=== PATIENT | male | born 1940 | race Caucasian/White ===

== ENCOUNTER 2016-05-03 16:46 | Inpatient (IN) | payer OTHER ==
[2016-05-03] MEDS ORDERED: NS 1,000 ML IV ONE (18:15)
[2016-05-03 18:24] LABS: % IMMATURE GRANULYOCYTES 0.7 % (0.0-1.1); ABSOLUTE IMMATURE GRANULOCYTES 0.12 10^3/uL (0.00-0.10); ADD DIFF? NO; ADD MORPH? NO; ADD SCAN? NO; ATYPICAL LYMPHOCYTE FLAG 0 (0-99); FRAGMENT RBC FLAG 0 (0-99); HEMATOCRIT 33.8 % (40.0-51.0); HEMOGLOBIN 10.8 g/dL (13.7-17.5); LEFT SHIFT FLG 0 (0-99); LIPEMIA HEMOLYSIS FLAG 80 (0-99); MEAN CELL HEMOGLOBIN 30.9 pg (27.9-34.1); MEAN CELL VOLUME 96.6 fL (81.5-99.8); MEAN PLATELET VOLUME 9.7 fL (8.7-11.7); PLATELET CLUMPS FLAG 10 (0-99); PLATELET COUNT 270 10^3/uL (150-400)
[2016-05-03 18:41] LABS: ANION GAP 12 mEq/L (8-16); CALCIUM 10.1 mg/dL (8.5-10.4); CARBON DIOXIDE 32 mEq/l (22-31); CHLORIDE 99 mEq/L (97-110); GLOMERULAR FILTRATION RATE > 60; GLUCOSE 106 mg/dL (70-100); POTASSIUM 3.5 mEq/L (3.5-5.2); SODIUM 143 mEq/L (134-144)
[2016-05-03] MEDS ORDERED: ONDANSETRON 4 MG/2 ML VIAL IVP PRN (19:01)
[2016-05-03] MEDS ORDERED: POLYETHYLENE GLYCOL 3350 17 GM PKT PO PRN (19:01)
[2016-05-03] MEDS ORDERED: oxyCODONE IR 5 MG TAB PO PRN (19:01)
[2016-05-03] MEDS ORDERED: BISACODYL 10 MG SUPP PR PRN (19:01)
[2016-05-03] MEDS ORDERED: ONDANSETRON DISINTEGRATING 4 MG TAB PO PRN (19:01)
[2016-05-03] MEDS ORDERED: MAGNESIUM HYDROXIDE 30 ML UDCUP PO PRN (19:01)
[2016-05-03] MEDS ORDERED: ACETAMINOPHEN 325 MG TAB PO PRN (19:01)
[2016-05-03] MEDS ORDERED: diphenhydrAMINE 25 MG CAP PO PRN (19:01)
[2016-05-03] MEDS ORDERED: LACTULOSE 20 GM/30 ML UDCUP PO PRN (19:01)
[2016-05-03] MEDS ORDERED: IOPAMIDOL (ISOVUE-300) 100 ML BTL IV ONE (19:03)
[2016-05-03] MEDS ORDERED: D5W 1/2 NS W/ 20 KCl/L 1,000 ML IV SCH (19:15)
--- NOTE | 2016-05-03 19:22 | EDPHY ---
H & P Time Seen by Provider: 05/03/16 17:53 HPI/ROS: CHIEF COMPLAINT: Facial numbness, dehydration, anorexia, dysarthria HISTORY OF PRESENT ILLNESS: 75-year-old male presents to the emergency department by private vehicle with his caregiver complaining of feeling very dehydrated. The patient states that over the last 2 weeks he has noticed some numbness to the left side of his lips and difficulty opening his mouth an articulating. 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 His caregiver saw him yesterday at 5:00 p.m. and states that he was articulating a bit better yesterday. He does not know if this is related to the dehydration. The caregiver was questioning possible stroke. The patient denies a headache. No known fevers or chills. No chest pain or difficulty breathing. Patient has lost a significant amount of weight. He is unable to eat because he is unable to control the motor with the right side of his face. His last bowel movement was approximately 1 week ago. He still states that he typically has a bowel movement daily. He is unsure of the last time he urinated. He denies abdominal pain. Denies back pain. Denies any reported trauma. He saw his ENT yesterday. REVIEW OF SYSTEMS: Constitutional: No fever, no chills. Eyes: No double or blurry vision. ENT: As above. No sore throat. Respiratory: No cough, no shortness of breath. Cardiac: No chest pain. Gastrointestinal: No abdominal pain, vomiting or diarrhea. Genitourinary: No dysuria. Musculoskeletal: No neck or back pain. Skin: No rashes. Neurological: No headache. Past Medical/Surgical History: Squamous cell carcinoma with facial reconstruction Social History: Smoking Status: Never smoked Physical Exam: General Appearance: Alert, no distress. Caregiver at bedside. Eyes: Pupils equal and round. Extraocular motions are all intact. ENT: Mouth: Mucous membranes very dry. Patient has some dysarthria. Respiratory: No wheezing, rhonchi, or rales, lungs are clear to auscultation. Cardiovascular: Regular rate and rhythm. Gastrointestinal: Abdomen is soft and nontender, no masses, no rebound or guarding, bowel sounds normal. Neurological: Alert and oriented x 3, cranial nerves II through XII grossly intact Skin: Purulent drainage noted pre-auricular to the right ear adjacent to surgical incision. Swelling noted to the right side of the face which is nontender to palpate although the patient has no sensation to the right side of the face. Pushing on the pre-auricular area of the face on the right side causes more purulent drainage. This was cultured. There is no redness or warmth. Warm and dry, no rashes. Musculoskeletal: Nontender to palpate along the cervical, thoracic or lumbar spine. Neck is supple. Extremities: Full range of motion and no peripheral edema. Psychiatric: Patient is oriented X 3, there is no agitation. Constitutional: Initial Vital Signs Temperature (C) 36.5 C 05/03/16 16:50 Heart Rate 88 05/03/16 16:50 Respiratory Rate 18 05/03/16 16:50 Blood Pressure 90/66 L 05/03/16 16:50 O2 Sat (%) 92 05/03/16 16:50 O2 Delivery Mode Room Air Allergies/Adverse Reactions: ampicillin Allergy (Unknown, Verified 05/03/16 16:58) Home Medications: Medication Instructions Recorded Butrans 15mcg/Hr Patch 1 patch TD Q7D 12/21/15 Fludrocortisone Acetate [Florinef] 0.2 mg PO DAILY 12/21/15 LORazepam [Ativan (*)] 0.5 - 1 mg PO HS 12/21/15 Levothyroxine [Synthroid 100 mcg 100 mcg PO HS 12/21/15 (*)] Pregabalin [Lyrica 75mg (*)] 150 mg PO DAILY 12/21/15 Sodium Chloride 4mg Tab 4 mg PO DAILY 12/21/15 Testosterone [ANDROGEL 1% 5gm pkt 5 gm TD DAILY 12/21/15 (*)] Pantoprazole Sodium [Protonix 40mg 40 mg PO BID #60 tab 12/23/15 (*)] Ciprofloxacin [Cipro] 500 mg PO BID 05/03/16 Citalopram Hydrobromide 20 mg PO DAILY 05/03/16 [Citalopram HBr] Pregabalin [Lyrica 75mg (*)] 225 mg PO HS 05/03/16 Medical Decision Making - Diagnostics Imaging: CT face with IV contrast: 1. Extensive lytic changes in the right face and skull base, as above, which could be related to osteomyelitis, metastasis, or possibly radiation necrosis. 2. Possible small abscess at the medial aspect of the right mandible, contiguous with extensive soft tissue swelling and inflammation in the region and possibly contiguous with the sinus tract extending to the patient's preauricular region. 3. Limited assessment of the right temporal lobe of the brain in the region of extensive erosions due to artifact from the patient's right eyelid prosthesis. 4. Comparison with the patient's previous imaging is recommended to assess acute changes suggestive of osteomyelitis from chronic changes. This was reported to me by Dr. Venkata Smith. CT brain without contrast: 1. Slightly limited study due to artifact from the right eyelid prosthesis, with extensive lytic changes in the right facial bones and skull base, which could be related to osteomyelitis, metastases, or radiation necrosis. 2. Limited assessment of the right temporal lobe in the area of interest due to artifact. This was reported to me by Dr. Venkata Smith. ED Course/Re-evaluation: The case was discussed with Dr. Felicity Pool, secondary supervising physician , who did not directly evaluate the patient but agrees with treatment and plan. The patient complains of numbness and tingling to the left side of his face and difficulty with moving the right side of his lips. This is been going on for the last 2 weeks. The caregiver however thinks that this has been worse in the last 24 hours when he last saw the patient. The patient's mucous membranes are extremely dry. The caregiver tells me that the patient was very tired and lethargic yesterday. The patient has difficulty articulating words which could be from his dry mucous membranes in combination with his facial surgery however this could be related to CVA. CT scan of the brain has been ordered as well as CT imaging of face with IV contrast to rule out abscess has been ordered and is pending. Elevated white blood cell count of almost 18,000. His BUN is high likely related to dehydration. I discussed case with Joce Chauhan, physician speech pathologist assistant, who admit this patient to medical-surgical floor. Blood cultures have been ordered and are pending. The patient is currently afebrile in the emergency department. Wound cultures pending. Joce Chauhan evaluated the patient and also spoke with Infectious Disease. See his dictation. Differential Diagnosis: Including but not limited to wound infection, sepsis, dehydration, failure to thrive, carcinoma, CVA - Data Points Laboratory Results: Laboratory Results 05/03/16 18:10 05/03/16 18:10 05/03/16 18:10 WBC 17.39 H 10^3/uL (3.80-9.50) RBC 3.50 L 10^6/uL (4.40-6.38) Hgb 10.8 L g/dL (13.7-17.5) Hct 33.8 L % (40.0-51.0) MCV 96.6 fL (81.5-99.8) MCH 30.9 pg (27.9-34.1) MCHC 32.0 L g/dL (32.4-36.7) RDW 17.0 H % (11.5-15.2) Plt Count 270 10^3/uL (150-400) MPV 9.7 fL (8.7-11.7) Neut % (Auto) 91.1 H % (39.3-74.2) Lymph % (Auto) 1.6 L % (15.0-45.0) Weber % (Auto) 6.3 % (4.5-13.0) Eos % (Auto) 0.1 L % (0.6-7.6) Baso % (Auto) 0.2 L % (0.3-1.7) Nucleat RBC Rel Count 0.0 % (0.0-0.2) Absolute Neuts (auto) 15.85 H 10^3/uL (1.70-6.50) Absolute Lymphs (auto) 0.27 L 10^3/uL (1.00-3.00) Absolute Monos (auto) 1.09 H 10^3/uL (0.30-0.80) Absolute Eos (auto) 0.02 L 10^3/uL (0.03-0.40) Absolute Basos (auto) 0.04 10^3/uL (0.02-0.10) Absolute Nucleated RBC 0.00 10^3/uL (0-0.01) Immature Gran % 0.7 % (0.0-1.1) Immature Gran # 0.12 H 10^3/uL (0.00-0.10) Sodium 143 mEq/L (134-144) Potassium 3.5 mEq/L (3.5-5.2) Chloride 99 mEq/L (97-110) Carbon Dioxide 32 H mEq/l (22-31) Anion Gap 12 mEq/L (8-16) BUN 39 H mg/dL (7-23) Creatinine 1.0 mg/dL (0.7-1.3) Estimated GFR > 60 Glucose 106 H mg/dL (70-100) Calcium 10.1 mg/dL (8.5-10.4) Microbiology Results: MICROBIOLOGY 05/03/16 18:10 Face - Swab Gram Stain - Final Medications Given: Discontinued Medications Sodium Chloride (Ns) 1,000 mls @ 0 mls/hr IV ONCE ONE PRN Reason: Wide Open Stop: 05/03/16 18:16 Last Admin: 05/03/16 18:15 Dose: 1,000 mls Departure - Departure Disposition: [facility] Inpatient Acute Clinical Impression: Wound infection right side of face, Dehydration Condition: Good
[2016-05-03] MEDS ORDERED: VANCOMYCIN 1 GM/NS 250 ML BAG IV ONE (19:32)
--- NOTE | 2016-05-03 19:58 | CT ---
CT Head Without Contrast History: Left facial numbness, dysarthria, right-sided ear pain with purulent discharge. Comparison: CT facial same day. Technique: Axial unenhanced images were obtained from the vertex through the skull base. Dose reduct ion techniques were utilized. Findings: Mccarty-white differentiation is preserved. There is mild diffuse cerebral atrophy with scatte red periventricular and subcortical low attenuation, suggesting chronic microvascular ischemic gliosi s. No intracranial hemorrhage is identified. No extraaxial fluid collections are identified. There is no mass, mass effect or evidence of infarct. Atherosclerotic calcification is present in the dista l internal carotid arteries. Visualization of the right orbit and portions of the brain are limited b y artifact from right orbital hardware. There are extensive osseous erosions in the right mastoid air cells, with extensive fluid opacification of the mastoid air cells (approximately 70%) and partial f luid opacification of the middle ear. The ossicles appear intact. There is erosion or postsurgical ch marc in the lateral wall of the right mastoid (series 3, image 24), with erosion of portions of the g reater wing of the sphenoid and sphenoid body as well as the squamous portion of the temporal bone. E rosions are also noted in the petrous portion of the temporal bone with erosion of the lateral wall o f the carotid canal. There is dehiscence of the sphenoid body between the sphenoid sinus and middle c ranial fossa. A small air fluid level is present in the sphenoid sinus. Punctate air is at the medial aspect of the left middle cranial fossa adjacent to the sphenoid sinus (series 4, image 45) of uncer tain clinical significance. There is also apparent dehiscence of the posterior wall of the right maxi llary sinus (series 3, image 26). Assessment of the right temporal lobe in the region of interest is limited by artifact. There is soft tissue air in the regions of the zygomatic process and squamous po rtion of the temporal bone, as well as the right temporal mandibular joint with air extending to the skin in the preauricular region. Partial erosion of the right mandibular condyle is noted. Impression: 1. Slightly limited study due to artifact from the right eyelid prosthesis, with extensive lytic mendoza ges in the right facial bones and skull base, which could be related to osteomyelitis, metastases, or radiation necrosis. 2. Limited assessment of the right temporal lobe in the area of interest due to artifact. 3. Additional findings as above. Findings discussed with Chasity Campos PA-C, on May 03, 2016 1949 hours.
--- NOTE | 2016-05-03 19:59 | SOAPPROG ---
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 Unknown if disease is truly contained weight loss--significant difficulty due to tongue impairment and swallowing--- will make NPO tonight, speech assessment in the am dehydration--IVF's constipation--LOC RA--continue meds Subjective: The patient has been having increased difficulty with eating/chewing/ and swallowing. He say his [place] [facility] today who put him on cipro and some ear drops for a draining infection along the anterior edge of his right ear at the posterior margin of his skin graft. He admits to coughing while eating. Some lung congestion. He feels increasingly weak and dehydrated. No F/C. Troubles with BM's sound to date back perhaps 2 weeks. UOP has been limited. No unusual pain Objective: Vital Signs Temp Pulse Resp BP Pulse Ox 36.5 C 76 20 120/71 94 05/03/16 16:50 05/03/16 18:35 05/03/16 18:35 05/03/16 18:35 05/03/16 18:35 Gen: thin, weak, pale, somewhat muddled HEENT: post surgical changes / post radiation changes Right face with droop, tongue movement problems, eye tracking issues--right eye, draining from posterior margin of skin graft that seems to "bubble" as he talks. No obvious LN enlargement, but terrain has been extensively modified. Pursing lips does not clearly suggest a perforation from mouth to graft is present Lungs: congested cough Lt upper lung field o/w clear Heart: RRR Chest is very thin ABd + bs soft, mild TTP lower abdomen, no masses Skin warm, dry LE's no edema Skeletal muscle has atrophied extensively CT head no acute intracranial injury Post surgical post radiative changes Right face/cheek/ear region CXR--generally clear ICD10 Worksheet Patient Problems: Problems Problem Status Diagnosed Anemia Acute Primary parotid gland malignancy Acute Upper GI bleed Acute
--- NOTE | 2016-05-03 20:28 | CT ---
CT Facial Bones, With Contrast History: Squamous cell carcinoma of the right face, with extensive postsurgical change, right preaur icular pain, and purulent discharge. Technique: Axial images were obtained through the face following the uneventful intravenous administ ration of 75 mL Isovue-300 and multiplanar reformations were performed. Dose reduction techniques we re utilized. Comparison: CT head the same day. Findings: There is an ill-defined 1.5 x 0.8 cm low attenuation collection at the medial aspect of th e mandible (series #3, image #92), which could be related to early abscess. There is extensive infla mmation in the adjacent soft tissues and musculature. There is soft tissue air in the region, as wel l, principally centered around the right temporomandibular joint, with a tract of air extending to th e preauricular region, likely corresponding to the area of purulent discharge. There are extensive o sseous defects, which could be related to erosions from osteomyelitis or potentially diffuse lytic me tastases, involving the right temporal bone, greater ring of the sphenoid, right mastoid air cells, p osterior wall of the right maxillary sinus, as well as the petrous portion of the temporal bone, incl uding the lateral wall of the carotid canal. There are cortical defects in the right mandibular cond yle, suggesting erosive change, with scattered air in the right temporomandibular joint. There is a large defect in the lateral aspect of the right mastoid air cells, which may be postsurgical, with ex tensive fluid opacification of the right mastoid air cells (approximately 70%). There is partial flu id opacification of the middle ear. The ossicles are intact. Assessment of the brain in the region is limited by artifact from an eyelid prosthesis in the right eye. There is dehiscence of bone betwe en the sphenoid sinus and right middle cranial fossa. A small air-fluid level is present in the righ t sphenoid. Punctate air is noted at the medial aspect of the left temporal lobe, lateral to the sph enoid body, with no visible osseous defects. This could be related to artifact from venous gas but i s nonspecific. There is postsurgical change in the right neck extending from the right submandibular region through the visualized right neck, with numerous surgical clips and scattered scarring. The right internal carotid artery is diminutive but appears patent throughout its visualized length. The right parotid gland is not visible. The left parotid gland is normal. The right submandibular glan d appears atrophic. The left submandibular gland is normal. No pathologically enlarged lymph nodes are identified. Impressions 1. Extensive lytic changes in the right face and skull base, as above, which could be related to ost eomyelitis, metastasis, or possibly radiation necrosis. 2. Possible small abscess at the medial aspect of the right mandible, contiguous with extensive soft tissue swelling and inflammation in the region and possibly contiguous with the sinus tract extendin g to the patient's preauricular region. 3. Limited assessment of the right temporal lobe of the brain in the region of extensive erosions du e to artifact from the patient's right eyelid prosthesis. 4. Comparison with the patient's previous imaging is recommended to assess acute changes suggestive of osteomyelitis from chronic changes. Findings discussed with Chasity Campos PA-C, on May 03, 2016 1949 hours. E:jack
[2016-05-03 21:00] LABS: COLOR YELLOW; LEUKOCYTE ESTERASE,URINE NEGATIVE (NEGATIVE); NITRITE,URINE NEGATIVE (NEGATIVE)
[2016-05-03] MEDS ORDERED: ENOXAPARIN 60 MG/0.6 ML SYR SC SCH (21:00)
--- NOTE | 2016-05-03 21:14 | GHP ---
[f rep st] HISTORY AND PHYSICAL DATE OF ADMISSION: 05/03/2016 REASON FOR ADMISSION: Facial infection, difficulty swallowing, weakness, anemia, elevated white bloo d count. HISTORY OF PRESENT ILLNESS: The patient has a complicated past medical history with known metastatic squamous cell carcinoma involving the right cheek, right face, and right preauricular region. He pickard d initial skin biopsies which did not quite capture the squamous cell carcinoma. This unfortunately metastasized to near structures. He has had multiple surgeries including 3 skin grafts. He has had partial excision of portions of his right ear. He has had radiation therapy. He has had difficulty chewing, swallowing and speaking secondary to complications with facial nerves as a consequence of th e aforementioned procedures and treatments. He has had more swallowing. As for the past several day s, he admits to choking and coughing when he eats. He feels quite dehydrated. He has had troubles w ith constipation. He states he was seen by his ENT, name unknown, in [place], either today or yesterd ay and was given ear drops for his right ear as well as Cipro for the infection. He has had some michael ining on the posterior margin of the right facial skin graft. He denies fever or chills. He admits to weakness. He has not had any other rash. He was brought here by his caregiver who provides some supplemental details as the patient is somewhat tired and a bit muddled at this point. 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 MEDICATIONS: Mirtazapine 30 mg nightly, lorazepam 0.5 mg nightly, omeprazole or pantoprazole 20-40 m g b.i.d., Synthroid 100 mcg daily, testosterone replacement daily, fludrocortisone 0.1 mg 2 tablets d aily, dutasteride 0.5 mg daily, Lyrica 3 capsules twice a day, oxycodone 5 mg 1-2 q.6 hours p.r.n. br eakthrough pain, duloxetine 60 mg daily with dinner, Butrans patch 20 mcg daily. SURGICAL HISTORY: Multiple procedures involving excision of right facial squamous cell carcinoma wit h recurrent skin graft surgery. Dr. Simms has been his most recent surgeon in [place]. SOCIAL HISTORY: He is a nonsmoker. Does not consume alcohol. He is , but in a challenging r elationship. FAMILY HISTORY: Father of [place] at 70. Mother at 80, had complications of Alzheimer's. He h as a brother with rheumatoid arthritis and history of stroke. ALLERGIES: Admits to remote allergy to ampicillin or amoxicillin perhaps 50 years ago with unknown r eaction. REVIEW OF SYSTEMS: He admits to feeling tired, weak. No specific fever or chills. See HPI. PHYSICAL EXAMINATION: VITAL SIGNS: Blood pressure initially 98/66 with fluid. This has improved to 124/72. Heart rate 76 to 90 beats per minute, respiratory rate 16 to 20, saturations 97%, 3 L. Ini tial saturations 92%, room air, temperature 36.5. GENERAL: Somewhat cachectic, pleasant, older-appe aring male, postsurgical changes right face, right eye. He generally has closed with a gold weight i n the lid to help approximate his lid margin. Tracking is asymmetric. He has a skin graft with fluc tuance in the superior portion of the skin graft with drainage in the posterior margin along the prea uricular region. There are some postsurgical changes to his right ear. Ear canal is somewhat inject ed. Purulent material is somewhat yellow-brownish in color. No obvious odor. Speech is difficult. Approximation is asymmetric. He describes some numbness around his mouth. NECK: Without obvious l ymphadenopathy. LUNGS: Somewhat coarse breath sounds. Slightly productive cough, particularly left upper field. HEART: Regular rate and rhythm. Mild systolic murmur is noted. ABDOMEN: Positive b owel sounds. Somewhat scaphoid, soft, diffusely mildly tender. No guarding, rebound, or masses. SK IN: Warm, dry, intact. JOINTS: Without impressive synovitis. LOWER EXTREMITIES: Without edema. NEUROVASCULARLY: Intact except for deficits involving his face. CT head: Postsurgical changes right face. CT brain: No acute injury. Chest x-ray: No acute infiltrate. LAB WORK: White count 17.3, hemoglobin 10.8, platelet count 270. Neutrophils with the majority of h is white count elevation. Metabolic panel: Potassium 3.5, carbon dioxide 32, BUN 39, glucose 106, c reatinine 1.0. ASSESSMENT: 1. Dehydration, poor nutrition, weight loss, likely complicated due to difficulty with swallowing, c hewing, and tongue coordination. Will make him n.p.o. Tonight. Will obtain Speech consultation. 2. Clear evidence of infection and concern for abscess formation with drainage in the superior porti on of his right facial skin graft. No air seen by gross inspection on CT of face in this region. I consulted with Dr. Pearl from [place] (Infectious Disease). We will start on meropenem 1 g q.8 and vanco mycin 750 mg q.12 for initial coverage of potential aspiration pneumonia, Pseudomonas and Staph. Arian l continue with IV fluid replacement. Will support potassium given the low end of the normal range. 3. Complicated situation with prior surgery. Better evaluation for whether or not he is truly in re mission from his multiple surgeries is yet to be determined. He will be having an MRI of head and ne ck at some point in the future down at [facility], if surgery is needed to be considered, potent suziey transferring him down to [place] where Dr. Simms is within reach. 4. Depression, anxiety, insomnia. Continue with current psychotropics. 5. Large duodenal ulcer with profound anemia in the not too distant past. Continue on proton pump i nhibitor therapy b.i.d. 6. Prior clotting history. His current medication list in our office does not reflect that he is on an anticoagulant. Will place on Lovenox for temporary coverage. Follow closely given recent GI (ga strointestinal) bleed. /[id number]/MODL
[2016-05-03] MEDS ORDERED: BUTRANS 15 MCG/HR TD SCH (21:15)
[2016-05-03] MEDS ORDERED: D5W NS W/ 20 KCl/L 1,000 ML IV SCH (21:15)
--- NOTE | 2016-05-03 21:16 | DX ---
AP and Lateral Chest May 03, 2016 History: Cough, elevated white count, history of right facial cancer and purulent right facial disch arge. Comparison: CT angiogram chest April 30, 2013. Findings: There are nodular opacities overlying the left lung base on the PA view, possibly related to posterior consolidation on the lateral. There is no pneumothorax. Mild interstitial prominence i s noted. The heart size is normal. Surgical clips overlie the right neck. There is asymmetric soft tissue swelling in the right neck. Degenerative change is present in the spine, with no aggressive osseous lesions. Impression: Patchy nodular left basilar opacities, which could be related to aspiration/pneumonia, o r possibly pulmonary nodules. Radiographic follow up is recommended to resolution. Findings and recommendations discussed with Melinda, the patient's nurse, on May 03, 2016 at 21 06 hours.
[2016-05-03] MEDS: VANCOMYCIN 750 MG in D5W 150 ML IV SCH (23:03)
[2016-05-03] MEDS: MEROPENEM 1 GM in NS 100 ML IV SCH (23:05)
[2016-05-03] MEDS: BUTRANS 20 MCG/HR TD SCH (23:07)
[2016-05-03] MEDS: SENNOSIDES/DOCUSATE SODIUM TAB PO SCH (23:08)
[2016-05-03] MEDS: PANTOPRAZOLE SODIUM 40 MG TAB PO SCH (23:08)
[2016-05-04 05:23] LABS: % IMMATURE GRANULYOCYTES 0.7 % (0.0-1.1); ABSOLUTE IMMATURE GRANULOCYTES 0.09 10^3/uL (0.00-0.10); ADD DIFF? NO; ADD MORPH? NO; ADD SCAN? NO; ATYPICAL LYMPHOCYTE FLAG 10 (0-99); FRAGMENT RBC FLAG 0 (0-99); HEMOGLOBIN 9.4 g/dL (13.7-17.5); LEFT SHIFT FLG 20 (0-99); LIPEMIA HEMOLYSIS FLAG 80 (0-99); MEAN CELL HEMOGLOBIN 30.1 pg (27.9-34.1); MEAN CELL HEMOGLOBIN CONCENTR. 30.3 g/dL (32.4-36.7); MEAN CELL VOLUME 99.4 fL (81.5-99.8); MEAN PLATELET VOLUME 9.8 fL (8.7-11.7); PLATELET CLUMPS FLAG 0 (0-99); PLATELET COUNT 213 10^3/uL (150-400); RED BLOOD CELL COUNT 3.12 10^6/uL (4.40-6.38)
[2016-05-04 05:38] LABS: ANION GAP 8 mEq/L (8-16); CALCIUM 9.2 mg/dL (8.5-10.4); CARBON DIOXIDE 34 mEq/l (22-31); CHLORIDE 104 mEq/L (97-110); CREATININE 0.7 mg/dL (0.7-1.3); GLOMERULAR FILTRATION RATE > 60; GLUCOSE 122 mg/dL (70-100); POTASSIUM 3.7 mEq/L (3.5-5.2); SODIUM 146 mEq/L (134-144)
[2016-05-04] MEDS: MEROPENEM 1 GM in NS 100 ML IV SCH ×3 (05:51→22:16)
[2016-05-04] MEDS: VANCOMYCIN 750 MG in D5W 150 ML IV SCH ×2 (06:37→20:15)
[2016-05-04] MEDS: TESTOSTERONE 1% 5 GM GEL PKT TD SCH (09:00)
--- NOTE | 2016-05-04 09:05 | SOAPPROG ---
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 Unknown if disease is truly contained weight loss--significant difficulty due to tongue impairment and swallowing--- will make NPO tonight, speech assessment in the am dehydration--IVF's constipation--LOC RA--continue meds 05/04/16 09:05 Right sided facial infection, complicated history with multiple surgeries, skin grafts x3, and radiation--Lots of drainage over night. WBC slightly better Speech, chewing, swallowing, and drinking deficits--ST working with patient now Neurogenic pain--significantly increased after not being able to take/swallow Lyrica, IV morphine added this am with some improvement dehydration--improved--change fluids given elevated sodium level constipation--+ BM today RA--stable anemia with iron deficiency, will replace with IV iron given feeding difficulties Subjective: The patient reports a difficult night due to headache and head pain. Numbness about his mouth is stable. He is hungry. He denies cough. Urinary flow has improved with IVF's, + BM as well. Objective: Vital Signs Temp Pulse Resp BP Pulse Ox 36.9 C 56 L 18 148/69 H 98 05/04/16 08:00 05/04/16 08:00 05/04/16 08:00 05/04/16 08:00 05/04/16 08:00 Laboratory Results 05/04/16 05:09 05/04/16 05:09 05/03/16 05/04/16 05/05/16 05:59 05:59 05:59 Intake Total 1000 Balance 1000 Gen: pleasant, uncomfortable, friendly HEENT: significant drainage overnight is caking right ear area, prominence of fluctuance about superior portion of skin graft has diminished some Speech is quite impaired, but better this am Lungs: improved aeration and clarity Heart: RRR Abd + bs, soft, mild lower abdominal TTP yesterday has resolved Hgb has dropped further with IVF's WBC improved ICD10 Worksheet Patient Problems: Problems Problem Status Diagnosed Dehydration Acute Anemia Acute Primary parotid gland malignancy Acute Upper GI bleed Acute
[2016-05-04] MEDS: DULoxetine 60 MG CAP PO SCH (10:21)
[2016-05-04] MEDS: PREGABALIN 75 MG CAP PO SCH (10:22)
[2016-05-04] MEDS: SENNOSIDES/DOCUSATE SODIUM TAB PO SCH ×2 (10:22→21:45)
[2016-05-04] MEDS: FLUDROCORTISONE ACETATE 0.1 MG TAB PO SCH (10:22)
[2016-05-04] MEDS: PANTOPRAZOLE SODIUM 40 MG TAB PO SCH ×2 (10:36→21:45)
[2016-05-04] MEDS: D5W 1/2 NS W/ 20 KCl/L 1,000 ML IV SCH (12:52)
[2016-05-04] MEDS: SODIUM FERRIC GLUCONAT/SUCROSE 125 MG in NS 100 ML IV SCH (12:55)
--- NOTE | 2016-05-04 13:22 | DX ---
Videofluoroscopy Speech Study Clinical Indication: Evaluate for aspiration in a patient with a history of squamous cell carcinoma o f the right face and extensive postsurgical changes. Findings: There is aspiration and penetration with thin liquids. With nectar-thickened liquid the pat ient was unable to adequately swallow a bolus. There is lack of tilting of the vallecula and weakness of the oropharynx. The patient was unable to drink from a straw with thin liquids, and all boluses w ere fed to him with a spoon. Dose: 13 mGy. Impression: Aspiration and penetration with thin liquids. Difficulty with nectar-thickened liquids. T he patient did not frankly aspirate the nectar thin liquids but was unable to adequately swallow a jessenia lacy. Please see separate report for full recommendations from speech therapy.
--- NOTE | 2016-05-04 13:57 | SOAPPROG ---
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 Unknown if disease is truly contained weight loss--significant difficulty due to tongue impairment and swallowing--- will make NPO tonight, speech assessment in the am dehydration--IVF's constipation--LOC RA--continue meds 05/04/16 09:05 Right sided facial infection, complicated history with multiple surgeries, skin grafts x3, and radiation--Lots of drainage over night. WBC slightly better Speech, chewing, swallowing, and drinking deficits--ST working with patient now Neurogenic pain--significantly increased after not being able to take/swallow Lyrica, IV morphine added this am with some improvement dehydration--improved--change fluids given elevated sodium level constipation--+ BM today RA--stable anemia with iron deficiency, will replace with IV iron given feeding difficulties 05/04/16 13:[address] olivera. Patient aspirates thin and nectar thick liquids and can't form a bolus. D/w patient, he would like to proceed with a PEG tube. I have discussed this with Dr Fuller who will see the patient today for hopeful placement today. Will hold on oral meds and hopefully be able to use the PEG for meds in the near future Objective: Vital Signs Temp Pulse Resp BP Pulse Ox 36.5 C 59 L 16 172/92 H 90 L 05/04/16 12:02 05/04/16 12:02 05/04/16 12:02 05/04/16 12:02 05/04/16 12:02 Laboratory Results 05/04/16 05:09 05/04/16 05:09 05/03/16 05/04/16 05/05/16 05:59 05:59 05:59 Intake Total 1000 Balance 1000 ICD10 Worksheet Patient Problems: Problems Problem Status Diagnosed Dehydration Acute Anemia Acute Primary parotid gland malignancy Acute Upper GI bleed Acute
[2016-05-04] MEDS ORDERED: METOPROLOL TARTRATE 5 MG/5 ML INJ IVP ONE (15:30)
[2016-05-04] MEDS ORDERED: PROPOFOL/EMULSION 500 MG/50 ML BOTTLE IV ONE (16:54)
[2016-05-04] MEDS ORDERED: ROCURONIUM 50 MG/5 ML VIAL ONE (16:56)
--- NOTE | 2016-05-04 17:41 | GCON ---
[f rep st] CONSULTATION DATE OF CONSULTATION: 05/04/2016 CONSULTING PHYSICIAN: CLIFF Wesley REASON FOR CONSULTATION: Dysphagia. CHIEF COMPLAINT: Dysphagia. HISTORY OF PRESENT ILLNESS: Mr. Rawls is a 75-year-old male with a past medical history of metastatic squamous cell carcinoma involving the right side of his face who presents to [facility] with complaints of dysphagia as well as significant weakness. 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 Over the last several days, he has been having episodes of choking and coughing when he eats. He has not been able to drink water and states that he feels dehydrated. He denies any exacerbating or alleviating factors to his symptoms. He had a recent swallow evaluation, and he was noted to have aspiration and penetration of thin liquids. He is expected to have a prolonged recovery. I am asked by Joce Chauhan to evaluate this patient in consultation regarding his dysphagia. PAST MEDICAL HISTORY: 1. Squamous cell carcinoma with metastasis with multiple surgeries and radiation therapy. 2. Hypertension. 3. Hypogonadism. 4. Hypothyroidism. 5. Rheumatoid arthritis. 6. Thyroid goiter. 7. Benign prostatic hypertrophy. 8. Pulmonary embolus. 9. Hyperlipidemia. PAST SURGICAL HISTORY: Excision of right facial squamous cell carcinoma with recurrent skin graft surgeries. MEDICATIONS: Mirtazapine, lorazepam, omeprazole, Synthroid, testosterone, fludrocortisone, Lyrica, oxycodone, and duloxetine. SOCIAL HISTORY: Nonsmoker. Does not consume alcohol. FAMILY HISTORY: Father of [place] at 70, mother at 80 of Alzheimer disease, brother with rheumatoid arthritis and CVA. ALLERGIES: Penicillin. REVIEW OF SYSTEMS: A 14-point comprehensive review of systems was asked. Pertinent positives as per HPI. PHYSICAL EXAMINATION: VITAL SIGNS: Blood pressure 158/98, pulse 73, temperature 36.8. GENERAL: Awake, alert, and oriented x3. The patient does not seem to be in any distress. HEENT: Anicteric sclerae. Skin graft involving the right face and right eye. NECK: No JVD. CARDIOVASCULAR: Regular rate and rhythm, positive S1 and S2. No rubs or gallops. The patient does have a systolic ejection murmur. LUNGS: Coarse breath sounds. No wheezes or rales. ABDOMEN: Soft, nontender, nondistended. Positive bowel sounds. No guarding, no rebound. No surgical scars. EXTREMITIES: No clubbing , cyanosis, or edema. NEUROLOGIC: No obvious weakness noted except for deficits involving his face. SKIN: Anicteric, warm. MUSCULOSKELETAL: No joint effusions. LABORATORY STUDIES: WBCs 13.3, hemoglobin 9.4, hematocrit 31, platelets 213. Chloride 104, bicarb 34, BUN 32. ASSESSMENT AND PLAN: 1. Dysphagia - with recent swallow study with aspiration: He is expected to have a prolonged recovery. At this time, I recommend to proceed with PEG placement. The risks, benefits, and alternatives of the procedure were described in great detail to the patient. The risks of infection, bleeding, perforation, and sedation were discussed. All questions answered, and informed consent was obtained. 2. History of squamous cell cancer of the right face. 3. Benign prostatic hypertrophy. 4. Hyperlipidemia. 5. Rheumatoid arthritis. 6. Hypertension Thank you very much for this consult. /[id number]/MODL MTDD
--- NOTE | 2016-05-04 18:31 | GPN ---
[f rep st] PROCEDURE NOTE DATE OF PROCEDURE: 05/04/2016 PROCEDURE: Esophagogastroduodenoscopy with biopsy, placement of PEG tube. INDICATION: The patient is a 75-year-old male with a history squamous cell of the right face with subsequent dysphagia. He presents for evaluation of a PEG tube. CONSENT: Risks, benefits, and alternatives of the procedure were discussed in great detail with the patient. Risks of infection, bleeding, perforation, and sedation were discussed. All questions answered and informed consent obtained. MEDICATIONS: General anesthesia. Please see Anesthesia for details. ESTIMATED BLOOD LOSS: Insignificant. . ESOPHAGOGASTRODUODENOSOCPY EXAMINATION: The Olympus upper endoscope was introduced into the mouth and advanced to the esophagus. The proximal, mid, and distal esophagus were normal in appearance. The stomach was entered and closely examined including retroflexed view of the angularis, cardia, and fundus. On the posterior wall of the distal body, a large 2 cm ulcer was seen. It was cratered. Biopsies were taken of the base of the ulcer. The rest of the esophagus was mildly erythematous and biopsies were taken to rule out H pylori. The duodenal bulb and second portion of the duodenum were normal in appearance. The scope was then withdrawn in the stomach and maximum air insufflation was utilized. A suitable spot was seen with a maximum transillumination. Iodine and a sterile prep was applied. Lidocaine was injected with a wheal formation. A 1 cm horizontal cut was made and a trocar was placed into the stomach under direct visualization. A guidewire was then advanced which was snared with the scope and pulled through the mouth. The PEG apparatus was applied and was pulled into the stomach in appropriate position. The bumper was at 2 cm. Excess air was suctioned and the procedure was terminated. IMPRESSION: 1. Gastric ulcer status post biopsy. 2. Successful placement of a PEG. RECOMMENDATION: 1. PPI therapy twice a day. 2. No NSAIDs. 3. Okay to start tube feeds tomorrow. 4. Clean area around PEG tube with soap and water BID. 5. Repeat EGD in 8 weeks with propofol. /[id number]/MODL MTDD
[2016-05-04] MEDS ORDERED: ACETAMINOPHEN 650 MG SUPP PR PRN (20:53)
[2016-05-04] MEDS ORDERED: PANTOPRAZOLE SODIUM 40 MG in NS 100 ML IV ONE (20:55)
[2016-05-04] MEDS ORDERED: LORazepam 0.5 MG TAB PO SCH (21:00)
[2016-05-04] MEDS ORDERED: MIRTAZAPINE 30 MG TAB PO SCH (21:00)
[2016-05-04] MEDS ORDERED: PREGABALIN 75 MG CAP PO SCH (21:00)
[2016-05-04] MEDS ORDERED: LEVOTHYROXINE 100 MCG TAB PO SCH (21:00)
[2016-05-04] MEDS ORDERED: LORazepam 2 MG/ML INJ IV PRN (21:06)
[2016-05-04] MEDS: BUTRANS 20 MCG/HR TD SCH (21:38)
[2016-05-04] MEDS ORDERED: *PHM DO NOT USE-LORazepam 1 MG/ML IV NEWBORN SYR IV SCH (22:00)
[2016-05-05] MEDS: D5W 1/2 NS W/ 20 KCl/L 1,000 ML IV SCH ×2 (05:35→20:46)
[2016-05-05] MEDS: MEROPENEM 1 GM in NS 100 ML IV SCH ×3 (05:35→21:01)
[2016-05-05] MEDS: VANCOMYCIN 750 MG in D5W 150 ML IV SCH (07:59)
[2016-05-05] MEDS ORDERED: METOPROLOL TARTRATE 5 MG/5 ML INJ IV ONE (11:00)
--- NOTE | 2016-05-05 11:47 | SOAPPROG ---
SOAP Progress Note Assessment/Plan: Assessment: 75 yo male w/ R facial infection w/ h/o multiple surgeries skin grafts underlying SCC w/ significant wt loss s/p PEG tube placement yesterday. -appreciate ST input yesterday -unfortunately Osiel w/ aspiration, unable to take po's, consult yesterday w/ GI appreciate Dr. Fuller seeing patient and placing PEG tube yesterday. Dr. Fuller cleared for using PEG tube today, will place orders for this and consult clinical trial data manager to help w/ starting nutrition. Meds can be crushed and PEG tube used for this. -neurogenic pain - will be able to get back on Lyrica/usual meds now w/ PEG tube -htn - may be 2/2 discomfort and inability to have usual meds but bp too high - gave metoprolol x 2 IV, will start on amlodipine 2.5 po qd now due to too low of HR yesterday. -dehydration - now will have access to input w/ PEG tube -R facial infection - per ID consultation in ER pt on meropenem and vanco. Sensitivities returned today and sensitive to meropenem. Plan: 05/05/16 11:40 Subjective: Meeting with currently, getting some peace w/ this Objective: Vital Signs Temp Pulse Resp BP Pulse Ox 36.3 C 63 14 184/88 H 100 05/05/16 08:13 05/05/16 11:12 05/05/16 08:13 05/05/16 11:12 05/05/16 08:13 Laboratory Results 05/04/16 05:09 05/04/16 05:09 05/04/16 05/05/16 05/06/16 05:59 05:59 05:59 Intake Total 1000 2950 Output Total 0 Balance 1000 2950 Gen: thin male, w/ obvious surgical changes to face, speech somewhat obscured from surgery and tongue control Chest: cta b CV: rrr Abd: peg tube in place w/ dressing intact, + bowel sounds, non tender except right around PEG tube insertion Ext: no edema - Pending Discharge Pending Discharge Within 24 Hours: No ICD10 Worksheet Patient Problems: Problems Problem Status Diagnosed Dehydration Acute Anemia Acute Primary parotid gland malignancy Acute Upper GI bleed Acute
[2016-05-05] MEDS: PETROLAT,WHT/MIN OIL/SOD CHL 3.5 GM OPHT.OINT EACHEYE PRN (11:49)
[2016-05-05] MEDS: DULoxetine 60 MG CAP PO SCH ×2 (11:51→14:31)
[2016-05-05] MEDS: FLUDROCORTISONE ACETATE 0.1 MG TAB PO SCH ×2 (11:52→14:30)
[2016-05-05] MEDS: SENNOSIDES/DOCUSATE SODIUM TAB PO SCH ×2 (11:52→20:50)
[2016-05-05] MEDS: PANTOPRAZOLE SODIUM 40 MG TAB PO SCH ×2 (11:52→14:29)
[2016-05-05] MEDS: PREGABALIN 75 MG CAP PO SCH ×2 (11:52→14:32)
[2016-05-05] MEDS: TESTOSTERONE 1% 5 GM GEL PKT TD SCH (11:53)
[2016-05-05] MEDS: SODIUM FERRIC GLUCONAT/SUCROSE 125 MG in NS 100 ML IV SCH (11:58)
[2016-05-05] MEDS ORDERED: BACITRACIN OINTMENT 1 PACKET TP ONE (12:39)
--- NOTE | 2016-05-05 12:41 | SOAPPROG ---
SOAP Progress Note Assessment/Plan: Assessment: 1. orophyarngeal dysphagia 2. PEG placement yesterday Plan: 1. Redressed PEG today 2. Dressing change once daily 3. Rotate tube 360 degrees in tract once daily and insure the external bolster is at 2.5cm (which is where I loosened it to this AM) 4. Wash surrounding skin with clean soap and water (in shower or at bedside) once daily prior to dressing change 5. Flush tube with 60ml of water three times daily and after any use of meds or tube feeds. 6. Ok to use PEG for nutrition, hydration and medications now. 05/05/16 12:34 Subjective: CC: Dysphagia PEG placed yesterday. Some minor abdominal "soreness" at PEG site. Objective: Vital Signs Temp Pulse Resp BP Pulse Ox 36.3 C 63 14 180/84 H 100 05/05/16 08:13 05/05/16 11:12 05/05/16 08:13 05/05/16 12:16 05/05/16 08:13 Laboratory Results 05/04/16 05:09 05/04/16 05:09 05/04/16 05/05/16 05/06/16 05:59 05:59 05:59 Intake Total 1000 2950 Output Total 0 Balance 1000 2950 Physical Exam - Physical Exam General Appearance: no apparent distress, cachetic, thin EENT: other (Right eye closed (ptosis)) Neck: other (Surgical site contracted with scar) Respiratory: lungs clear Cardiac/Chest: regular rate, rhythm Abdomen: non-tender, soft, other (PEG site in mid-upper abdomen with dressing. Clean. PEG bolster at 1.5cm. Loosed to 2.5cm. Skin cleaned with water and wash cloth. Bacitracin applied with sterile dressing.), No distended, No guarding, No rebound ICD10 Worksheet Patient Problems: Problems Problem Status Diagnosed Dehydration Acute Anemia Acute Primary parotid gland malignancy Acute Upper GI bleed Acute
[2016-05-05] MEDS ORDERED: MAGNESIUM HYDROXIDE 30 ML UDCUP TUBE PRN (16:24)
[2016-05-05] MEDS ORDERED: oxyCODONE IR 5 MG TAB TUBE PRN (16:25)
--- NOTE | 2016-05-05 18:08 | GCON ---
[f rep st] CONSULTATION INPATIENT INFECTIOUS DISEASE CONSULTATION REFERRING PHYSICIAN: Cheryl Curiel MD REASON FOR REFERRAL: Complex right facial infection with signs of abscess and deep structure involve ment. HISTORY OF PRESENT ILLNESS: Patient is a 75-year-old male who was admitted to [facility] through the emergency room on 05/03/16 secondary to facial numbness, dehydration, anorexia, and dy sarthria. The patient has been admitted due to increasing symptoms over the last 2 weeks where he no ticed numbness in his face and difficulty opening his mouth. He has a history of squamous cell carci noma of the right side of the face with extensive facial reconstruction done in February 2015. The gio glynn also gives a history of having infection in the area of reconstruction in the mid year of 2015, being treated with some antibiotics and having nearly 2-3 months of hyperbaric oxygen therapy. He s tates the area healed up completely but then started draining approximately a month or so ago. The nirali atluanne has lost a significant amount of weight in the last few months. He is unable to eat from [facility] anical reasons. He denies any fevers or chills. PAST MEDICAL HISTORY: Squamous cell carcinoma. PAST SURGICAL HISTORY: Status post extensive facial reconstruction and tumor debridement with positi ve margins. ANTIBIOTICS: 1. Meropenem. 2. Vancomycin. ALLERGIES: Ampicillin. SOCIAL HISTORY: The patient is . Was quite active prior to his squamous cell cancer diagnosi s. No tobacco. No significant alcohol or drug use. FAMILY HISTORY: Reviewed but noncontributory. REVIEW OF SYSTEMS: Other than that detailed above in the History of Present Illness, a comprehensive 10-system review is negative. PHYSICAL EXAMINATION: VITAL SIGNS: Temperature maximum 36.8, temperature current 36.3. Heart rate is 62. Respiratory rate is 14. Blood pressure is 188/90. GENERAL: The patient is a well-formed, e xtraordinarily thin, older male in no acute distress. He is not toxic in appearance. He is alert an d oriented x3. He has a pleasant demeanor. HEENT: Normocephalic but postoperative on the right malini e of the face. He has a right-sided eyelid prosthesis and extensive soft tissue grafting to the righ t side of the face. He has an open facial wound just anterior to the external auditory canal on the right side, which is draining purulent material. There is no surrounding erythema notable. Eyes: L id and conjunctivae are within normal limits. Right-sided eyelid is prosthetic. Left pupil equal, r ound, and reactive. NECK: Supple without meningismus. LUNGS: Clear to auscultation bilaterally wi th good effort. HEART: Regular rate and rhythm. No murmur, rub, or gallop noted. No significant p eripheral edema. SKIN: Warm and dry to the touch other than the facial operative site findings from above. No rash or lesion noted. MUSCULOSKELETAL: No muscle belly tenderness is noted. No joint e nlargement, effusion, or arthritis is seen. NEURO: Cranial nerves on the left side are intact. Pat ient has facial nerve interruption on the right side. Peripheral sensation seems intact in all extre mities. LABORATORY DATA: The patient has a CBC dated 05/04/16, shows a white blood cell count 13.3, hemoglob in of 9.4, hematocrit 31.0, and a platelet count of 213. Differential is left shifted with 90% segme nted neutrophils. Serum chemistries on 05/04/16 show a sodium of 146, potassium of 3.7, chloride of 104, bicarbonate 34, BUN of 32, and creatinine 0.7. Urinalysis on 05/03/16 within normal limits. MICROBIOLOGIC DATA: The patient has blood cultures dated 05/03/16, which are no growth to date. The patient has facial swab of the purulent fluid from the right side of his face, which is growing Pseu domonas aeruginosa. This isolate is bonds sensitive. RADIOLOGIC DATA: Patient has a facial CT with a head CT with contrast dated 05/03/16. Findings reve aled extensive lytic changes in the right face and skull base, which could be related to osteomyeliti s, metastasis, or even radiation necrosis. There is possible small abscess at the medial aspect of t he right mandible contiguous with extensive soft tissue swelling and inflammation in the region and p ossibly contiguous with sinus tract extending to the patient's preauricular region. ASSESSMENT: 1. Late postoperative complication of infection to the right facial reconstruction area. The cultur e of the purulent discharge is positive for Pseudomonas aeruginosa, which is likely the pathogen. Th e patient is being covered broadly with both vancomycin and meropenem. Will probably discontinue the vancomycin at this point. My concerns after hearing this story and seeing the CT scan is that some of these lytic lesions on CT are compliance representative of foci of osteomyelitis. Will obtain an MRI with an d without gadolinium of the face to try to delineate where some of these osteomyelitic regions may be . The patient apparently is very aggressive at wanting to solve these problems, including not only t he squamous cell cancer but infection. We will make this our primary goal. At this point, we will d iscontinue the vancomycin and continue meropenem. Once the imaging is obtained, we will discuss what is the next step. Surgical consultation is likely. PLAN: 1. MRI of the face with and without gadolinium. 2. Continue meropenem. 3. Discontinue vancomycin. 4. Follow appearance of the wound. 5. Follow white blood cell count in the laboratory and clinical course. /[id number]/MODL
[2016-05-05] MEDS: LANSOPRAZOLE SUSP 30MG/10ML UDSYR (Adult) TUBE SCH (20:47)
[2016-05-05] MEDS: LEVOTHYROXINE 100 MCG TAB TUBE SCH (20:47)
[2016-05-05] MEDS: MIRTAZAPINE 30 MG TAB TUBE SCH (20:48)
[2016-05-05] MEDS: LORazepam 0.5 MG TAB TUBE SCH (20:48)
[2016-05-05] MEDS ORDERED: PREGABALIN 75 MG CAP TUBE SCH (21:00)
[2016-05-06] MEDS: MEROPENEM 1 GM in NS 100 ML IV SCH ×3 (04:58→21:17)
[2016-05-06] MEDS: D5W 1/2 NS W/ 20 KCl/L 1,000 ML IV SCH ×2 (04:58→21:09)
[2016-05-06 05:28] LABS: HEMATOCRIT 36.8 % (40.0-51.0); HEMOGLOBIN 11.7 g/dL (13.7-17.5); MEAN CELL HEMOGLOBIN 30.4 pg (27.9-34.1); MEAN CELL HEMOGLOBIN CONCENTR. 31.8 g/dL (32.4-36.7); MEAN CELL VOLUME 95.6 fL (81.5-99.8); RED BLOOD CELL COUNT 3.85 10^6/uL (4.40-6.38); RED CELL DISTRIBUTION WIDTH 16.5 % (11.5-15.2)
[2016-05-06 05:41] LABS: ANION GAP 11 mEq/L (8-16); CALCIUM 9.4 mg/dL (8.5-10.4); CARBON DIOXIDE 33 mEq/l (22-31); CHLORIDE 98 mEq/L (97-110); CREATININE 0.6 mg/dL (0.7-1.3); GLOMERULAR FILTRATION RATE > 60; GLUCOSE 110 mg/dL (70-100); POTASSIUM 2.9 mEq/L (3.5-5.2); SODIUM 142 mEq/L (134-144)
[2016-05-06] MEDS ORDERED: FLUDROCORTISONE ACETATE 0.1 MG TAB TUBE SCH ×2 (09:00→10:42)
[2016-05-06] MEDS: SODIUM FERRIC GLUCONAT/SUCROSE 125 MG in NS 100 ML IV SCH (09:45)
[2016-05-06] MEDS: DULoxetine 60 MG CAP TUBE SCH (09:48)
[2016-05-06] MEDS: PREGABALIN 75 MG CAP TUBE SCH ×2 (09:49→21:18)
[2016-05-06] MEDS: TESTOSTERONE 1% 5 GM GEL PKT TD SCH (09:57)
[2016-05-06] MEDS: SENNOSIDES/DOCUSATE SODIUM TAB PO SCH (09:59)
[2016-05-06] MEDS: LANSOPRAZOLE SUSP 30MG/10ML UDSYR (Adult) TUBE SCH ×2 (10:03→21:16)
--- NOTE | 2016-05-06 10:44 | SOAPPROG ---
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 Unknown if disease is truly contained weight loss--significant difficulty due to tongue impairment and swallowing--- will make NPO tonight, speech assessment in the am dehydration--IVF's constipation--LOC RA--continue meds 05/04/16 09:05 Right sided facial infection, complicated history with multiple surgeries, skin grafts x3, and radiation--Lots of drainage over night. WBC slightly better Speech, chewing, swallowing, and drinking deficits--ST working with patient now Neurogenic pain--significantly increased after not being able to take/swallow Lyrica, IV morphine added this am with some improvement dehydration--improved--change fluids given elevated sodium level constipation--+ BM today RA--stable anemia with iron deficiency, will replace with IV iron given feeding difficulties 05/04/16 13:[address] jarod. Patient aspirates thin and nectar thick liquids and can't form a bolus. D/w patient, he would like to proceed with a PEG tube. I have discussed this with Dr Fuller who will see the patient today for hopeful placement today. Will hold on oral meds and hopefully be able to use the PEG for meds in the near future 05/06/16 10:42 HTN--BP improved, will reduce fludrocortisone from 0.2 towards 0.1 mg daily, taper further if BP remains to be elevated low k+--start tube replacement dehydration/malnourishment--PEG refeeding, appreciate dietary guidance complicated skin infection, concern from osteomyelitis--facial MRI pending, appreciate ID input Objective: Vital Signs Temp Pulse Resp BP Pulse Ox 36.5 C 90 18 150/76 H 92 05/06/16 07:27 05/06/16 07:27 05/06/16 07:27 05/06/16 09:51 05/06/16 07:27 Laboratory Results 05/06/16 05:06 05/06/16 05:06 05/05/16 05/06/16 05/07/16 05:59 05:59 05:59 Intake Total 2950 3365 Output Total 0 325 Balance 2950 3040 ICD10 Worksheet Patient Problems: Problems Problem Status Diagnosed Dehydration Acute Anemia Acute Primary parotid gland malignancy Acute Upper GI bleed Acute
[2016-05-06] MEDS: POTASSIUM CL 20 MEQ/15 ML UDCUP TUBE SCH ×2 (11:07→21:18)
--- NOTE | 2016-05-06 11:45 | PCMIDPN ---
Assessment/Plan: Assessment: Likely a deep surgical site infection just anterior to the right external auditory canal at site of squamous cell tumor debridement last year. CT scan seems to indicate areas of lytic lesions on the bone which may be metastatic disease or may be sites of deep bone infection. MRI would be a better modality with gadolinium to look at this. However the patient has a right eyelid prosthesis that do not have data on that is worrisome to Radiology that would not be MRI compliant. Apparently the patient has an MRI planned through [facility] where he had there is prosthesis placed which would circumstantially indicate that it is MRI compliant. Anyway discussed with Joce Chauhan and he will coordinate obtaining certification on the prosthesis to get an MRI here or have the patient go to [place] to get an MRI there. In the meantime the deep surgical site is oozing purulent material which is positive for Pseudomonas aeruginosa. He is covered with meropenem which is good for this isolate as well as others which may be there. At this point I will not narrow given the gravity of the situation. Patient also has underlying well-nourished man and is getting tube feeds now. He is likely going to need those tube feeds to be increased until he meets a positive calorie goal. Plan: 1. Continue meropenem. 2. Continue supportive care an antral feedings. 3. Work with Joce Chauhan and his office to coordinate MRI with gadolinium for characterization of deep structure infection in the right temporal region. 05/06/16 15:32 Subjective: Patient is resting in his bed. He states he is very sleepy today. Did not get his MRI last evening due to concerns about the compliance of his eyelid prosthesis. No fevers or chills. Objective: Meropenem # 3 Vital Signs Temp Pulse Resp BP Pulse Ox 36.5 C 90 18 150/76 H 92 05/06/16 07:27 05/06/16 07:27 05/06/16 07:27 05/06/16 09:51 05/06/16 07:27 Laboratory Results 05/06/16 05:06 05/06/16 05:06 05/05/16 05/06/16 05/07/16 05:59 05:59 05:59 Intake Total 2950 3365 Output Total 0 325 Balance 2950 3040 - Physical Exam General Appearance: WD/WN, alert, no apparent distress, cachetic, thin, non- toxic EENT: other (Right-sided preauricular lesion with a purulent draining wound.) Respiratory: lungs clear, normal breath sounds, No respiratory distress Cardiac/Chest: regular rate, rhythm, No tachycardia Extremities: non-tender, normal inspection Skin: normal color, warm/dry, No rash Neuro/Psych: alert, normal mood/affect, oriented x 3 ICD10 Worksheet Patient Problems: Problems Problem Status Diagnosed Dehydration Acute Anemia Acute Primary parotid gland malignancy Acute Upper GI bleed Acute
[2016-05-06] MEDS ORDERED: LACTULOSE 20 GM/30 ML UDCUP TUBE PRN (12:54)
[2016-05-06] MEDS: PETROLAT,WHT/MIN OIL/SOD CHL 3.5 GM OPHT.OINT EACHEYE PRN (14:50)
[2016-05-06] MEDS: ENOXAPARIN 40 MG/0.4 ML SYR SC SCH (17:01)
[2016-05-06] MEDS: predniSONE 10 MG TAB TUBE SCH (17:01)
[2016-05-06] MEDS: LEVOTHYROXINE 100 MCG TAB TUBE SCH (21:17)
[2016-05-06] MEDS: MIRTAZAPINE 30 MG TAB TUBE SCH (21:17)
[2016-05-06] MEDS: LORazepam 0.5 MG TAB TUBE SCH (21:17)
[2016-05-06] MEDS: SENNOSIDES 17.6 MG/10 ML UDL TUBE SCH (21:19)
[2016-05-07 04:54] LABS: % IMMATURE GRANULYOCYTES 0.8 % (0.0-1.1); ABSOLUTE IMMATURE GRANULOCYTES 0.11 10^3/uL (0.00-0.10); ADD DIFF? NO; ADD MORPH? NO; ADD SCAN? NO; ATYPICAL LYMPHOCYTE FLAG 30 (0-99); FRAGMENT RBC FLAG 0 (0-99); HEMATOCRIT 36.7 % (40.0-51.0); HEMOGLOBIN 11.5 g/dL (13.7-17.5); LEFT SHIFT FLG 10 (0-99); LIPEMIA HEMOLYSIS FLAG 80 (0-99); MEAN CELL HEMOGLOBIN 30.4 pg (27.9-34.1); MEAN CELL HEMOGLOBIN CONCENTR. 31.3 g/dL (32.4-36.7); MEAN CELL VOLUME 97.1 fL (81.5-99.8); MEAN PLATELET VOLUME 9.9 fL (8.7-11.7); PLATELET CLUMPS FLAG 10 (0-99); PLATELET COUNT 275 10^3/uL (150-400); RED BLOOD CELL COUNT 3.78 10^6/uL (4.40-6.38); RED CELL DISTRIBUTION WIDTH 16.4 % (11.5-15.2)
[2016-05-07 05:12] LABS: ALANINE AMINOTRANSFERASE 30 IU/L (21-72); ALKALINE PHOSPHATASE 121 IU/L (38-126); ANION GAP 12 mEq/L (8-16); ASPARTATE AMINOTRANSFERASE 19 IU/L (17-59); BILIRUBIN,TOTAL 0.5 mg/dL (0.1-1.4); C-REACTIVE PROTEIN 64.7 mg/L (<10.0); CALCIUM 9.5 mg/dL (8.5-10.4); CARBON DIOXIDE 31 mEq/l (22-31); CHLORIDE 102 mEq/L (97-110); CREATININE 0.6 mg/dL (0.7-1.3); GLOMERULAR FILTRATION RATE > 60; GLUCOSE 124 mg/dL (70-100); POTASSIUM 3.3 mEq/L (3.5-5.2); SODIUM 145 mEq/L (134-144); TOTAL PROTEIN 6.3 g/dL (6.3-8.2)
[2016-05-07 05:18] LABS: % SATURATION 27 % (20-55); TOTAL IRON BINDING CAPACITY 179 ug/dL (260-490)
[2016-05-07] MEDS: MEROPENEM 1 GM in NS 100 ML IV SCH ×3 (05:32→21:09)
[2016-05-07 05:39] LABS: SEDIMENTATION RATE 66 MM/HR (0-20)
[2016-05-07] MEDS: SODIUM FERRIC GLUCONAT/SUCROSE 125 MG in NS 100 ML IV SCH (09:04)
[2016-05-07] MEDS: predniSONE 10 MG TAB TUBE SCH (09:09)
[2016-05-07] MEDS: POTASSIUM CL 20 MEQ/15 ML UDCUP TUBE SCH ×2 (09:09→21:09)
[2016-05-07] MEDS: LANSOPRAZOLE SUSP 30MG/10ML UDSYR (Adult) TUBE SCH ×2 (09:09→21:09)
[2016-05-07] MEDS: ENOXAPARIN 40 MG/0.4 ML SYR SC SCH (09:09)
[2016-05-07] MEDS: DULoxetine 60 MG CAP TUBE SCH (09:10)
[2016-05-07] MEDS: TESTOSTERONE 1% 5 GM GEL PKT TD SCH (09:10)
--- NOTE | 2016-05-07 09:21 | PCMIDPN ---
Assessment/Plan: Assessment/Plan: 1. Deep soft tissue infection/abscess at the preauricular region with possible osteomyelitis: -Ongoing purulent drainage noted. Cx with Pseudomonas. -Currently on Merem -Awaiting to see if able to get MRI to better define extent of infection. - Wbc noted. Creatinine and LFT stable. Blood cx from 05/03/16 ngtd Meds merem 1g q8- 05/03/16 Subjective: Afebrile. Denies pain at right cheek or ear at present. Denies sob, abd pain or diarrhea. Objective: Vital Signs Temp Pulse Resp BP Pulse Ox 36.5 C 73 14 157/92 H 93 05/07/16 07:40 05/07/16 07:40 05/07/16 07:40 05/07/16 09:10 05/07/16 07:40 Laboratory Results 05/07/16 04:39 05/07/16 04:39 05/06/16 05/07/16 05/08/16 05:59 05:59 05:59 Intake Total 3365 3900 Output Total 325 Balance 3040 3900 ESR 66 MM/HR (0-20) H 05/07/16 04:39 C-Reactive Protein 64.7 mg/L (<10.0) H 05/07/16 04:39 - Physical Exam General Appearance: alert, no apparent distress, thin EENT: other (right eau purulent drainage. skin graft noted. right eye closed) Respiratory: lungs clear Cardiac/Chest: regular rate, rhythm Extremities: No swelling Abdomen: normal bowel sounds, non-tender, soft, No distended Skin: No erythema ICD10 Worksheet Patient Problems: Problems Problem Status Diagnosed Dehydration Acute Anemia Acute Primary parotid gland malignancy Acute Upper GI bleed Acute
[2016-05-07] MEDS: SENNOSIDES 17.6 MG/10 ML UDL TUBE SCH ×2 (10:54→21:09)
[2016-05-07] MEDS: PREGABALIN 75 MG CAP TUBE SCH ×2 (10:54→21:09)
--- NOTE | 2016-05-07 11:16 | SOAPPROG ---
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 Unknown if disease is truly contained weight loss--significant difficulty due to tongue impairment and swallowing--- will make NPO tonight, speech assessment in the am dehydration--IVF's constipation--LOC RA--continue meds 05/04/16 09:05 Right sided facial infection, complicated history with multiple surgeries, skin grafts x3, and radiation--Lots of drainage over night. WBC slightly better Speech, chewing, swallowing, and drinking deficits--ST working with patient now Neurogenic pain--significantly increased after not being able to take/swallow Lyrica, IV morphine added this am with some improvement dehydration--improved--change fluids given elevated sodium level constipation--+ BM today RA--stable anemia with iron deficiency, will replace with IV iron given feeding difficulties 05/04/16 13:[address] jarod. Patient aspirates thin and nectar thick liquids and can't form a bolus. D/w patient, he would like to proceed with a PEG tube. I have discussed this with Dr Fuller who will see the patient today for hopeful placement today. Will hold on oral meds and hopefully be able to use the PEG for meds in the near future 05/06/16 10:42 HTN--BP improved, will reduce fludrocortisone from 0.2 towards 0.1 mg daily, taper further if BP remains to be elevated low k+--start tube replacement dehydration/malnourishment--PEG refeeding, appreciate dietary guidance complicated skin infection, concern from osteomyelitis--facial MRI pending, appreciate ID input 05/07/16 11:12 right facial infection with probable osteomyelitis. Suspect progression of squamous cell CA as well. MRI still pending. Radiologists are not willing to proceed with MRI until lid gold bar is completely identified and imaging protocol clarified. weight loss--on tube feed dysphagia/dysphonia--worse than 2 weeks ago considerably, suspect more nerve injury is occurring RA--started prednisone at 10 mg daily as stress dose--notes suggest his baseline prednisone dose was 2-4 mg per day. Methotrexate currently held. Last Humira dose unknown--no clear evidence of RA activity HTN--stop fludrocortisone Tube feeding--will look to dietary to increase tube fluids as IV fluid will be discontinued this am >1 hour spent with patient and planning today 05/07/16 11:16 Subjective: Spoke with Osiel and his custom clothier Mr Mckee at length this morning. I have also spoken at length with his dtr Jacinda Paiz in [place]. His supporting cast wants to make sure he knows it is ok to stop fighting. Osiel would like to know what the MRI says before he wants to consider hospice. He is fairly comfortable currently. Objective: Vital Signs Temp Pulse Resp BP Pulse Ox 36.5 C 73 14 157/92 H 93 05/07/16 07:40 05/07/16 07:40 05/07/16 07:40 05/07/16 09:10 05/07/16 07:40 Laboratory Results 05/07/16 04:39 05/07/16 04:39 05/06/16 05/07/16 05/08/16 05:59 05:59 05:59 Intake Total 3365 3900 Output Total 325 Balance 3040 3900 Gen: brighter, NAD, thin, Right ear dressed Neck/face--post surgical/radiative changes Neck: no acute masses Lungs: CTAB Heart: RRR LE's --no edema ICD10 Worksheet Patient Problems: Problems Problem Status Diagnosed Dehydration Acute Anemia Acute Primary parotid gland malignancy Acute Upper GI bleed Acute
--- NOTE | 2016-05-07 15:31 | WOCRNPDOC ---
WOCRN Advanced Assessment Note - Skin Integrity Problem, Advanced Assess Right Face Dressing Type: Other Other Dressing Type: gauze Dressing Description: Intact, Saturated Exudate Amount: Excessive Exudate Color: Yellow Exudate Characteristic(s): Purulent Integumentary Issue Intervention: Dressing Changed Ambika Wound Tissue: Erythema (not around purulent tunnel, but distal mainly around slough filled tissue. Approx 0.3 cm ambika wound from 4 to 9 oclock.) Wound Bed Constitution: Smooth Tissue, Loose Slough Site Measurement - Head-to-Toe Length X Width X Depth (cm): [id number] Skin Integrity Problem Comment: Tunnel at 12 oclock along border of ear face with significant amount of purulent discharge. This wound was not probed due to its location and the patient's significant surgical history. However it appears to tract medially. Superficial wound then moves inferiorly and is 100% slough. This appears to be along the margin of one of the graft sites. Due to the location of the wound imaging and surgical intervention will likely be warranted to I and D the site. Re covered with dry gauze. No wound care recommendations at this time. Please reconsult prn. Dr. Soto visualized wound.
[2016-05-07] MEDS: LEVOTHYROXINE 100 MCG TAB TUBE SCH (21:08)
[2016-05-07] MEDS: MIRTAZAPINE 30 MG TAB TUBE SCH (21:08)
[2016-05-07] MEDS: LORazepam 0.5 MG TAB TUBE SCH (21:09)
[2016-05-08] MEDS: MEROPENEM 1 GM in NS 100 ML IV SCH ×3 (05:22→23:06)
[2016-05-08] MEDS: DULoxetine 60 MG CAP TUBE SCH (07:47)
[2016-05-08] MEDS: predniSONE 10 MG TAB TUBE SCH (07:47)
[2016-05-08] MEDS: ENOXAPARIN 40 MG/0.4 ML SYR SC SCH (07:48)
[2016-05-08] MEDS: POTASSIUM CL 20 MEQ/15 ML UDCUP TUBE SCH ×2 (07:49→21:20)
[2016-05-08] MEDS: ACETAMINOPHEN 650 MG/20.3 ML UDCUP TUBE PRN ×2 (08:06→23:06)
[2016-05-08] MEDS: TESTOSTERONE 1% 5 GM GEL PKT TD SCH (08:08)
--- NOTE | 2016-05-08 10:23 | PCMIDPN ---
Assessment/Plan: Assessment/Plan: 1. Deep soft tissue infection/abscess at the preauricular region with possible osteomyelitis: -Ongoing purulent drainage noted. Cx with Pseudomonas. -Currently on Merem -Awaiting to see if able to get MRI to better define extent of infection. - Wbc noted. Creatinine and LFT stable. Blood cx from 05/03/16 ngtd -Discussed care with Dr. Chauhan today. -If MRI shows extensive abnormalities related to cancer or osteomyelitis, - patient/family may consider hospice, per my conversation with Dr. Chauhan. Meds merem 1g q8- 05/03/16 Subjective: Afebrile. Denies sob, abd pain or diarrhea. on tube feeds. c/o mild discomfort at peg tube site with movement. Objective: Vital Signs Temp Pulse Resp BP Pulse Ox 36.8 C 80 16 182/102 H 92 05/08/16 07:30 05/08/16 07:30 05/08/16 07:30 05/08/16 07:30 05/08/16 07:30 Laboratory Results 05/07/16 04:39 05/07/16 04:39 05/07/16 05/08/16 05/09/16 05:59 05:59 05:59 Intake Total 3900 2392 0 Output Total 650 Balance 3900 1742 0 ESR 66 MM/HR (0-20) H 05/07/16 04:39 C-Reactive Protein 64.7 mg/L (<10.0) H 05/07/16 04:39 - Physical Exam General Appearance: alert, no apparent distress EENT: other (purulent drainage just anterior to right EAC. right cheek skin graft site noted. ) Respiratory: lungs clear Cardiac/Chest: regular rate, rhythm Extremities: No swelling Abdomen: normal bowel sounds, non-tender, soft, No distended ICD10 Worksheet Patient Problems: Problems Problem Status Diagnosed Dehydration Acute Anemia Acute Primary parotid gland malignancy Acute Upper GI bleed Acute
--- NOTE | 2016-05-08 12:07 | SOAPPROG ---
SOAP Progress Note Assessment/Plan: Assessment:Significantly improved with feeding tube. Plan: Proceed with MRI. Will likely need ENT input for further debridement of infection. 05/08/16 12:06 Subjective: Having a deep cough. Generally having adequate pain management. Objective: Vital Signs Temp Pulse Resp BP Pulse Ox 36.8 C 80 16 182/102 H 92 05/08/16 07:30 05/08/16 07:30 05/08/16 07:30 05/08/16 07:30 05/08/16 07:30 Laboratory Results 05/07/16 04:39 05/07/16 04:39 05/07/16 05/08/16 05/09/16 05:59 05:59 05:59 Intake Total 3900 2392 0 Output Total 650 Balance 3900 1742 0 Lungs with some minor dependent rales. no tubular sounds. COR RRR. MRI still pending. ICD10 Worksheet Patient Problems: Problems Problem Status Diagnosed Dehydration Acute Anemia Acute Primary parotid gland malignancy Acute Upper GI bleed Acute
[2016-05-08] MEDS: SENNOSIDES 17.6 MG/10 ML UDL TUBE SCH ×3 (12:21→23:07)
[2016-05-08] MEDS: PREGABALIN 75 MG CAP TUBE SCH ×2 (12:22→21:22)
[2016-05-08] MEDS: LANSOPRAZOLE SUSP 30MG/10ML UDSYR (Adult) TUBE SCH ×2 (12:27→21:40)
[2016-05-08] MEDS: LORazepam 0.5 MG TAB TUBE SCH (21:20)
[2016-05-08] MEDS: MIRTAZAPINE 30 MG TAB TUBE SCH (21:21)
[2016-05-08] MEDS: LEVOTHYROXINE 100 MCG TAB TUBE SCH (21:21)
[2016-05-09] MEDS: MEROPENEM 1 GM in NS 100 ML IV SCH ×3 (05:46→21:59)
--- NOTE | 2016-05-09 08:39 | SOAPPROG ---
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 Unknown if disease is truly contained weight loss--significant difficulty due to tongue impairment and swallowing--- will make NPO tonight, speech assessment in the am dehydration--IVF's constipation--LOC RA--continue meds 05/04/16 09:05 Right sided facial infection, complicated history with multiple surgeries, skin grafts x3, and radiation--Lots of drainage over night. WBC slightly better Speech, chewing, swallowing, and drinking deficits--ST working with patient now Neurogenic pain--significantly increased after not being able to take/swallow Lyrica, IV morphine added this am with some improvement dehydration--improved--change fluids given elevated sodium level constipation--+ BM today RA--stable anemia with iron deficiency, will replace with IV iron given feeding difficulties 05/04/16 13:[address] jarod. Patient aspirates thin and nectar thick liquids and can't form a bolus. D/w patient, he would like to proceed with a PEG tube. I have discussed this with Dr Fuller who will see the patient today for hopeful placement today. Will hold on oral meds and hopefully be able to use the PEG for meds in the near future 05/06/16 10:42 HTN--BP improved, will reduce fludrocortisone from 0.2 towards 0.1 mg daily, taper further if BP remains to be elevated low k+--start tube replacement dehydration/malnourishment--PEG refeeding, appreciate dietary guidance complicated skin infection, concern from osteomyelitis--facial MRI pending, appreciate ID input 05/07/16 11:12 right facial infection with probable osteomyelitis. Suspect progression of squamous cell CA as well. MRI still pending. Radiologists are not willing to proceed with MRI until lid gold bar is completely identified and imaging protocol clarified. weight loss--on tube feed dysphagia/dysphonia--worse than 2 weeks ago considerably, suspect more nerve injury is occurring RA--started prednisone at 10 mg daily as stress dose--notes suggest his baseline prednisone dose was 2-4 mg per day. Methotrexate currently held. Last Humira dose unknown--no clear evidence of RA activity HTN--stop fludrocortisone Tube feeding--will look to dietary to increase tube fluids as IV fluid will be discontinued this am >1 hour spent with patient and planning today 05/07/16 11:16 05/09/16 08:36 Right facial infection with pseudomonas, on appropriate antibiotic coverage metastatic right facial squamous cell CA--MRI pending. Will hope to shore up details on Right eye gold bar prosthesis to get this done. MRI results will help patient guide decisions on how to proceed profound dysphagia--Tube feeds with PEG working well as malnourishment has resulted in profound weight loss Patient to likely move in with [facility] in [facility] once MRI completed , decisions made, and house ready for him Subjective: He is comfortable. Sleepy this am. No complaints of pain. Admits to some throat congestion. Objective: Vital Signs Temp Pulse Resp BP Pulse Ox 36.9 C 81 16 139/73 H 92 05/08/16 23:56 05/08/16 23:56 05/08/16 23:56 05/08/16 23:56 05/08/16 23:56 Microbiology 05/03/16 19:40 Blood Culture - Final Blood 05/03/16 19:35 Blood Culture - Final Blood Laboratory Results 05/07/16 04:39 05/07/16 04:39 05/08/16 05/09/16 05/10/16 05:59 05:59 05:59 Intake Total 2392 100 100 Output Total 650 500 Balance 1742 -400 100 Gen: tired, falls off to sleep answering questions this am HEENT: drainage seems to be reducing from just anterior to Right ear Lungs: slight congestion with cough o/w clear Heart: RRR Abd + bs soft NT, PEG tube placed SKIN-intact--right facial swelling seems reduced LE's no edema ICD10 Worksheet Patient Problems: Problems Problem Status Diagnosed Dehydration Acute Anemia Acute Primary parotid gland malignancy Acute Upper GI bleed Acute
[2016-05-09] MEDS: SENNOSIDES 17.6 MG/10 ML UDL TUBE SCH ×2 (08:45→20:12)
[2016-05-09] MEDS: ENOXAPARIN 40 MG/0.4 ML SYR SC SCH (08:45)
[2016-05-09] MEDS: TESTOSTERONE 1% 5 GM GEL PKT TD SCH (08:46)
[2016-05-09] MEDS: LANSOPRAZOLE SUSP 30MG/10ML UDSYR (Adult) TUBE SCH ×2 (08:46→20:12)
[2016-05-09] MEDS: DULoxetine 60 MG CAP TUBE SCH (08:46)
[2016-05-09] MEDS: PREGABALIN 75 MG CAP TUBE SCH ×2 (08:47→20:10)
[2016-05-09] MEDS: predniSONE 10 MG TAB TUBE SCH (08:47)
[2016-05-09] MEDS: POTASSIUM CL 20 MEQ/15 ML UDCUP TUBE SCH ×2 (08:47→20:11)
[2016-05-09] MEDS: POLYETHYLENE GLYCOL 3350 17 GM PKT TUBE PRN (08:49)
[2016-05-09] MEDS: ACETAMINOPHEN 650 MG/20.3 ML UDCUP TUBE PRN ×2 (08:50→20:11)
[2016-05-09] MEDS ORDERED: diphenhydrAMINE 12.5 MG/5 ML UDCUP TUBE PRN (10:04)
--- NOTE | 2016-05-09 18:04 | PCMIDPN ---
Assessment/Plan: Assessment: Likely a deep surgical site infection just anterior to the right external auditory canal at site of squamous cell tumor debridement last year. Patient continues to exude purulent material from a sinus tract just anterior to the right external auditory canal. Await an MRI to be performed later this evening. Based on results over arching decisions will be made as to course of medical care. Plan: 1. Continue meropenem. 2. Continue supportive care an enteral feedings. 3. Follow up on MRI results. Subjective: Patient is resting comfortably in his hospital bed. He notes no significant change. He has a piece of gauze in his right external auditory canal which is soaking up the exudate. He has not noted that it has been changed recently. Denies fevers or chills. Objective: Meropenem # 6 Vital Signs Temp Pulse Resp BP Pulse Ox 36.4 C 76 16 123/72 H 91 L 05/09/16 16:00 05/09/16 16:00 05/09/16 16:00 05/09/16 16:00 05/09/16 16:00 Microbiology 05/03/16 19:40 Blood Culture - Final Blood 05/03/16 19:35 Blood Culture - Final Blood Laboratory Results 05/07/16 04:39 05/07/16 04:39 05/08/16 05/09/16 05/10/16 05:59 05:59 05:59 Intake Total 2392 100 100 Output Total 650 500 600 Balance 1742 -400 -500 ESR 66 MM/HR (0-20) H 05/07/16 04:39 C-Reactive Protein 64.7 mg/L (<10.0) H 05/07/16 04:39 - Physical Exam General Appearance: WD/WN, alert, no apparent distress, cachetic, non-toxic Respiratory: lungs clear, normal breath sounds, No respiratory distress Cardiac/Chest: regular rate, rhythm, No tachycardia Extremities: non-tender, normal inspection Skin: normal color, warm/dry, No rash ICD10 Worksheet Patient Problems: Problems Problem Status Diagnosed Dehydration Acute Anemia Acute Primary parotid gland malignancy Acute Upper GI bleed Acute
[2016-05-09] MEDS ORDERED: GADOBUTROL 10 ML VIAL IVP ONE (19:18)
[2016-05-09] MEDS: LORazepam 0.5 MG TAB TUBE SCH (20:10)
[2016-05-09] MEDS: MIRTAZAPINE 30 MG TAB TUBE SCH (20:11)
[2016-05-09] MEDS: LEVOTHYROXINE 100 MCG TAB TUBE SCH (20:11)
[2016-05-10] MEDS: MEROPENEM 1 GM in NS 100 ML IV SCH ×3 (05:39→21:01)
[2016-05-10 05:42] LABS: % IMMATURE GRANULYOCYTES 0.4 % (0.0-1.1); ABSOLUTE IMMATURE GRANULOCYTES 0.07 10^3/uL (0.00-0.10); ADD DIFF? NO; ADD MORPH? NO; ADD SCAN? YES; ATYPICAL LYMPHOCYTE FLAG 20 (0-99); FRAGMENT RBC FLAG 10 (0-99); HEMATOCRIT 44.2 % (40.0-51.0); HEMOGLOBIN 13.5 g/dL (13.7-17.5); LEFT SHIFT FLG 0 (0-99); LIPEMIA HEMOLYSIS FLAG 80 (0-99); MEAN CELL HEMOGLOBIN CONCENTR. 30.5 g/dL (32.4-36.7); MEAN CELL VOLUME 98.2 fL (81.5-99.8); MEAN PLATELET VOLUME 10.9 fL (8.7-11.7); PLATELET COUNT 325 10^3/uL (150-400); RED CELL DISTRIBUTION WIDTH 17.3 % (11.5-15.2)
[2016-05-10 05:48] LABS: ANION GAP 15 mEq/L (8-16); CALCIUM 10.6 mg/dL (8.5-10.4); CARBON DIOXIDE 28 mEq/l (22-31); CHLORIDE 105 mEq/L (97-110); CREATININE 0.6 mg/dL (0.7-1.3); GLOMERULAR FILTRATION RATE > 60; GLUCOSE 95 mg/dL (70-100); POTASSIUM 4.6 mEq/L (3.5-5.2); SODIUM 148 mEq/L (134-144)
[2016-05-10 05:49] LABS: PLATELET CLUMPS FLAG 300 (0-99)
[2016-05-10 06:23] LABS: SCAN NEGATIVE
--- NOTE | 2016-05-10 09:34 | SOAPPROG ---
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 Unknown if disease is truly contained weight loss--significant difficulty due to tongue impairment and swallowing--- will make NPO tonight, speech assessment in the am dehydration--IVF's constipation--LOC RA--continue meds 05/04/16 09:05 Right sided facial infection, complicated history with multiple surgeries, skin grafts x3, and radiation--Lots of drainage over night. WBC slightly better Speech, chewing, swallowing, and drinking deficits--ST working with patient now Neurogenic pain--significantly increased after not being able to take/swallow Lyrica, IV morphine added this am with some improvement dehydration--improved--change fluids given elevated sodium level constipation--+ BM today RA--stable anemia with iron deficiency, will replace with IV iron given feeding difficulties 05/04/16 13:[address] jarod. Patient aspirates thin and nectar thick liquids and can't form a bolus. D/w patient, he would like to proceed with a PEG tube. I have discussed this with Dr Fuller who will see the patient today for hopeful placement today. Will hold on oral meds and hopefully be able to use the PEG for meds in the near future 05/06/16 10:42 HTN--BP improved, will reduce fludrocortisone from 0.2 towards 0.1 mg daily, taper further if BP remains to be elevated low k+--start tube replacement dehydration/malnourishment--PEG refeeding, appreciate dietary guidance complicated skin infection, concern from osteomyelitis--facial MRI pending, appreciate ID input 05/07/16 11:12 right facial infection with probable osteomyelitis. Suspect progression of squamous cell CA as well. MRI still pending. Radiologists are not willing to proceed with MRI until lid gold bar is completely identified and imaging protocol clarified. weight loss--on tube feed dysphagia/dysphonia--worse than 2 weeks ago considerably, suspect more nerve injury is occurring RA--started prednisone at 10 mg daily as stress dose--notes suggest his baseline prednisone dose was 2-4 mg per day. Methotrexate currently held. Last Humira dose unknown--no clear evidence of RA activity HTN--stop fludrocortisone Tube feeding--will look to dietary to increase tube fluids as IV fluid will be discontinued this am >1 hour spent with patient and planning today 05/07/16 11:16 05/09/16 08:36 Right facial infection with pseudomonas, on appropriate antibiotic coverage metastatic right facial squamous cell CA--MRI pending. Will hope to shore up details on Right eye gold bar prosthesis to get this done. MRI results will help patient guide decisions on how to proceed profound dysphagia--Tube feeds with PEG working well as malnourishment has resulted in profound weight loss Patient to likely move in with [facility] in [facility] once MRI completed , decisions made, and house ready for him 05/10/16 09:32 right facial infection--MRI read and comparison pending. Images complicated elevated Na+ add more free water to PEG QID elevated WBC with increasingly productive cough--check CXR on antibiotics and prednisone, suspect opportunistic yeast likely, consider fluconazole--will defer to ID Subjective: Feels ok. More congestion in throat. Not uncomfortable in general. Cough with more productivity. No f/c. No bowel complaints Objective: Vital Signs Temp Pulse Resp BP Pulse Ox 36.9 C 80 18 158/82 H 100 05/10/16 07:28 05/10/16 07:28 05/10/16 07:28 05/10/16 07:28 05/10/16 07:28 Microbiology 05/03/16 19:40 Blood Culture - Final Blood 05/03/16 19:35 Blood Culture - Final Blood Laboratory Results 05/10/16 04:57 05/10/16 04:57 05/09/16 05/10/16 05/11/16 05:59 05:59 05:59 Intake Total 100 1305 Output Total 500 950 Balance -400 355 Gen: thin, tired, pleasant HEENT: persistent drainage anterior to Right ear Lungs: baseline breath sound with some congestion, throat congestion with cough Heart: RRR Na+ 148 WBC 16.9 MRI Face/brain/orbits---awaiting read. Images complex given prior surgery, radiation. ICD10 Worksheet Patient Problems: Problems Problem Status Diagnosed Dehydration Acute Anemia Acute Primary parotid gland malignancy Acute Upper GI bleed Acute
[2016-05-10] MEDS: POTASSIUM CL 20 MEQ/15 ML UDCUP TUBE SCH ×2 (09:40→20:43)
[2016-05-10] MEDS: TESTOSTERONE 1% 5 GM GEL PKT TD SCH (09:40)
[2016-05-10] MEDS: ENOXAPARIN 40 MG/0.4 ML SYR SC SCH (09:40)
[2016-05-10] MEDS: DULoxetine 60 MG CAP TUBE SCH (09:41)
[2016-05-10] MEDS: PREGABALIN 75 MG CAP TUBE SCH ×2 (09:41→20:43)
[2016-05-10] MEDS: predniSONE 10 MG TAB TUBE SCH (09:42)
--- NOTE | 2016-05-10 09:55 | MR ---
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 Comparison: CT brain May 03, 2016. Technique: Axial, coronal, and sagittal MR imaging of the brain and facial/orbital regions prior to a nd after the uneventful intravenous administration of 5 mL Gadavist contrast with T1, T2, diffusion, T2 fat-suppressed, and T1 fat-suppressed series performed. Findings: Diffusion imaging of the brain demonstrates no evidence of acute infarct. There is mild dif fuse cerebral atrophy, especially bilateral frontal lobes. Normal flow void in the superior sagittal sinus indicating patency. Moderate mucosal thickening in the right sphenoid sinus and mild mucosal th ickening in right maxillary and ethmoid sinuses. Normal flow void in the left internal carotid artery and basilar artery. The right internal carotid a rtery in the paracavernous region appears narrowed with circumferential soft tissue probably represen ting neoplasm or postradiation changes without evidence of complete occlusion. There is diffuse leptomeningeal enhancement throughout bilateral cerebral hemispheres, more prominent on the right, especially the right frontal and temporal lobe regions, consistent with leptomeningiti s. No intraaxial enhancing lesions, hydrocephalus, midline shift or herniation. No epidural fluid col lections or enhancing masses. White matter edema in the right temporal lobe which may be postradiatio n changes or represent cerebritis. Edema also in the right middle cerebellar peduncle which may repre sent postradiation changes. Abnormal bone marrow signal intensity and enhancement involving the ramus of the right mandible exten ding for at least 13 mm consistent with osteomyelitis. Abnormal enhancement of all of the chronic specialist space muscles surrounding the right mandible and in the infratemporal fossa consistent with myositis. No evidence of drainable abscess. The enhancing chronic specialist space muscle measures 4.5 x 3.7 cm. Asymm etric enhancement from the infratemporal fossa and chronic specialist space extends to the right carotid spac e also. There is a 9 mm bony defect in the right temporal bone identified on series A:10, image 13 co rresponding to the recent CT finding with associated leptomeningeal enhancement likely the etiology f or leptomeningitis from the right chronic specialist space myositis and cellulitis. Fluid in the right mastoi d air cells also. No evidence of intraorbital infection or enhancing lesions. Impression: 1. Severe cellulitis and myositis involving the right chronic specialist space/infratemporal fossa region wit h associated osteomyelitis of the right ramus of the mandible, osteomyelitis with lytic destruction o f the right temporal bone, and resulting leptomeningitis, more prominent in the right frontal and tem poral lobe regions. 2. Right sphenoid, right ethmoid, and right maxillary sinusitis with fluid in the right sphenoid sinu s. Fluid in the right mastoid air cells also. 3. Heterogeneous enhancing tissue encasing and narrowing the right paracavernous internal carotid art nannette either representing neoplasm or postradiation fibrosis. 4. No acute infarct, acute hemorrhage, hydrocephalus, or herniation. 5. Please see above findings. Findings and recommendations discussed with Dr. Max Abreu at 0900 hours today.
[2016-05-10] MEDS: LANSOPRAZOLE SUSP 30MG/10ML UDSYR (Adult) TUBE SCH ×2 (10:00→20:44)
[2016-05-10] MEDS: SENNOSIDES 17.6 MG/10 ML UDL TUBE SCH ×2 (10:05→20:43)
[2016-05-10] MEDS: PETROLAT,WHT/MIN OIL/SOD CHL 3.5 GM OPHT.OINT EACHEYE PRN (10:05)
[2016-05-10] MEDS: ACETAMINOPHEN 650 MG/20.3 ML UDCUP TUBE PRN ×2 (10:59→20:44)
--- NOTE | 2016-05-10 11:50 | DX ---
PA and Lateral Chest May 10, 2016 Indication: Elevated white blood cell count. Increased rhonchi. Recently placed PEG tube. Comparison: Two-view chest dated May 03, 2016. Findings: Pneumoperitoneum under the right hemidiaphragm is likely due to recent PEG tube placement. Patchy left basilar consolidation has improved yet persists. No new airspace consolidation. The right lung remains clear. No edema or effusion has developed. Impressions 1. Improving left basilar pneumonia versus aspiration since six days prior. 2. Pneumoperitoneum is likely related to recent PEG tube placement. Comment: Results discussed with Joce Chauhan PA-C, shortly after study completion.
--- NOTE | 2016-05-10 15:12 | PCMIDPN ---
Assessment/Plan: Assessment: Likely a deep surgical site infection just anterior to the right external auditory canal at site of squamous cell tumor debridement last year. Patient continues to exude purulent material from a sinus tract just anterior to the right external auditory canal. MRI reveals enhancement on the mandible as well as the temporal bone. Patient also has leptomeningeal enhancement on the right side. This may reflect meningitis which is secondary to the deep facial and basilar skull infection. In addition the patient has extensive cellulitis and myositis of the right facial muscles. No drainable collection is seen. Plan: 1. Continue meropenem. 2. Continue supportive care an enteral feedings. 3. Await primary care guidance regarding extent of steps to correct the above problems. If there is no squamous cell carcinoma metastasis seen in this area conceptually this is a curable situation. 05/10/16 15:08 Subjective: Patient is sitting up in his bed. He has no particular complaint. Appears tired. No fevers or chills. Objective: Meropenem # 7 Vital Signs Temp Pulse Resp BP Pulse Ox 36.9 C 80 18 179/104 H 100 05/10/16 07:28 05/10/16 07:28 05/10/16 07:28 05/10/16 10:05 05/10/16 07:28 Laboratory Results 05/10/16 04:57 05/10/16 04:57 05/09/16 05/10/16 05/11/16 05:59 05:59 05:59 Intake Total 100 1305 Output Total 500 950 Balance -400 355 ESR 66 MM/HR (0-20) H 05/07/16 04:39 C-Reactive Protein 64.7 mg/L (<10.0) H 05/07/16 04:39 - Physical Exam General Appearance: WD/WN, alert, no apparent distress, cachetic, non-toxic Respiratory: lungs clear, normal breath sounds, No respiratory distress Cardiac/Chest: regular rate, rhythm, No tachycardia Skin: normal color, warm/dry, other (Continued purulent exudate from the right sinus tract in front of his auditory canal.), No rash Neuro/Psych: alert, normal mood/affect, oriented x 3 ICD10 Worksheet Patient Problems: Problems Problem Status Diagnosed Dehydration Acute Anemia Acute Primary parotid gland malignancy Acute Upper GI bleed Acute
[2016-05-10] MEDS ORDERED: PETROLATUM WHITE EACHEYE PRN ×2 (18:26→18:29)
[2016-05-10] MEDS ORDERED: MINERAL OIL EACHEYE PRN ×2 (18:26→18:29)
[2016-05-10] MEDS ORDERED: FLUCONAZOLE 40 MG/1 ML 35 ML BOTTLE PO SCH (18:30)
[2016-05-10] MEDS: FLUCONAZOLE 40 MG/1 ML 35 ML BOTTLE TUBE SCH (19:05)
[2016-05-10] MEDS: MIRTAZAPINE 30 MG TAB TUBE SCH (20:43)
[2016-05-10] MEDS: LORazepam 0.5 MG TAB TUBE SCH (20:43)
[2016-05-10] MEDS: LEVOTHYROXINE 100 MCG TAB TUBE SCH (20:44)
[2016-05-10] MEDS: BUTRANS 20 MCG/HR TD SCH (20:46)
[2016-05-11] MEDS: MEROPENEM 1 GM in NS 100 ML IV SCH ×3 (06:01→22:11)
--- NOTE | 2016-05-11 09:13 | SOAPPROG ---
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 Unknown if disease is truly contained weight loss--significant difficulty due to tongue impairment and swallowing--- will make NPO tonight, speech assessment in the am dehydration--IVF's constipation--LOC RA--continue meds 05/04/16 09:05 Right sided facial infection, complicated history with multiple surgeries, skin grafts x3, and radiation--Lots of drainage over night. WBC slightly better Speech, chewing, swallowing, and drinking deficits--ST working with patient now Neurogenic pain--significantly increased after not being able to take/swallow Lyrica, IV morphine added this am with some improvement dehydration--improved--change fluids given elevated sodium level constipation--+ BM today RA--stable anemia with iron deficiency, will replace with IV iron given feeding difficulties 05/04/16 13:[address] jarod. Patient aspirates thin and nectar thick liquids and can't form a bolus. D/w patient, he would like to proceed with a PEG tube. I have discussed this with Dr Fuller who will see the patient today for hopeful placement today. Will hold on oral meds and hopefully be able to use the PEG for meds in the near future 05/06/16 10:42 HTN--BP improved, will reduce fludrocortisone from 0.2 towards 0.1 mg daily, taper further if BP remains to be elevated low k+--start tube replacement dehydration/malnourishment--PEG refeeding, appreciate dietary guidance complicated skin infection, concern from osteomyelitis--facial MRI pending, appreciate ID input 05/07/16 11:12 right facial infection with probable osteomyelitis. Suspect progression of squamous cell CA as well. MRI still pending. Radiologists are not willing to proceed with MRI until lid gold bar is completely identified and imaging protocol clarified. weight loss--on tube feed dysphagia/dysphonia--worse than 2 weeks ago considerably, suspect more nerve injury is occurring RA--started prednisone at 10 mg daily as stress dose--notes suggest his baseline prednisone dose was 2-4 mg per day. Methotrexate currently held. Last Humira dose unknown--no clear evidence of RA activity HTN--stop fludrocortisone Tube feeding--will look to dietary to increase tube fluids as IV fluid will be discontinued this am >1 hour spent with patient and planning today 05/07/16 11:16 05/09/16 08:36 Right facial infection with pseudomonas, on appropriate antibiotic coverage metastatic right facial squamous cell CA--MRI pending. Will hope to shore up details on Right eye gold bar prosthesis to get this done. MRI results will help patient guide decisions on how to proceed profound dysphagia--Tube feeds with PEG working well as malnourishment has resulted in profound weight loss Patient to likely move in with [facility] in [facility] once MRI completed , decisions made, and house ready for him 05/10/16 09:32 right facial infection--MRI read and comparison pending. 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 on Meropenem. PICC line today. D/W with Dr Pearl today. She has more concerns regarding the severity of the infection. Will attempt to connect Mr Rawls with [facility]. unable to eat/drink--continued nutrition through PEG labs pending Subjective: He feels comfortable. No changes over night. Speech and throat congestion remain to be challenges, but stable. Anticipating plan to get him in front of [facility] in [place]. Objective: Vital Signs Temp Pulse Resp BP Pulse Ox 36.8 C 85 18 163/87 H 92 05/11/16 07:52 05/11/16 07:52 05/11/16 07:52 05/11/16 07:52 05/11/16 07:52 Laboratory Results 05/10/16 04:57 05/10/16 04:57 05/10/16 05/11/16 05/12/16 05:59 05:59 05:59 Intake Total 1305 2404 105 Output Total 950 Balance 355 2404 105 Gen: NAD, sleepy this am HEENT: stable drainage, film on tongue, congested posterior throat Lungs: baseline breath sounds are clear, throat congestion with cough Heart: RRR Abd + PEG, BS soft no edema ICD10 Worksheet Patient Problems: Problems Problem Status Diagnosed Dehydration Acute Anemia Acute Primary parotid gland malignancy Acute Upper GI bleed Acute
[2016-05-11] MEDS ORDERED: ALTEPLASE 2 MG VIAL IVP PRN (09:19)
--- NOTE | 2016-05-11 09:21 | PCMIDPN ---
Assessment/Plan: # Extensive pseudomonal infection on the right face/head/ear including: Severe cellulitis/myositis of the right core analysis operator space, osteomyelitis of the right mandible and right temporal bone and likely underlying meningitis with meningeal enhancement in the right frontal and temporal bone regions. Some of the sinus coker on the right demonstrate destruction as well. Some abnormalities present may be due to malignancy. --ideally would like lumbar puncture to demonstrate extent of meningeal involvement, discussed risks and benefits of LP with patient and he is deciding on what he wants to do. Patient on antibiotic with CSF penetration currently --needs extensive surgical debridement for cure of this infection, patient requesting evaluation by outside physician. Internal Medicine service is mediating follow-up --will continue meropenem, place PICC line today. Discussed risks and benefits of meropenem including seizure risk # Leukocytosis, trending up patient on low dose steroids but suspect may be due to severe infection as above Medication Meropenem 1 g IV Q 8h, # 8 MRI personally reviewed by me with the assistance of Radiology, case discussed with Joce Chauhan Subjective: Patient denies pain. He is very sleepy Objective: Vital Signs Temp Pulse Resp BP Pulse Ox 36.8 C 85 18 163/87 H 92 05/11/16 07:52 05/11/16 07:52 05/11/16 07:52 05/11/16 07:52 05/11/16 07:52 Laboratory Results 05/10/16 04:57 05/10/16 04:57 05/10/16 05/11/16 05/12/16 05:59 05:59 05:59 Intake Total 1305 2404 105 Output Total 950 Balance 355 2404 105 ESR 66 MM/HR (0-20) H 05/07/16 04:39 C-Reactive Protein 64.7 mg/L (<10.0) H 05/07/16 04:39 - Physical Exam General Appearance: alert (But sleepy), thin, other (Chronically ill appearance) EENT: dry mucous membranes, other (Significant purulent, bloody drainage out of the right ear canal. Obvious prior surgical intervention on the right face) Neck: supple Cardiac/Chest: regular rate, rhythm Extremities: No pedal edema Abdomen: non-tender, soft Skin: pallor, No rash Neuro/Psych: alert - Time Spent With Patient Time Spent with Patient: greater than 35 minutes (Reviewed the pathogenesis of pseudomonal infections, risks and benefits of meropenem, need for surgical intervention for cure with patient and his daughter) Time Spent with Patient: Greater than 35 minutes spent on this patients care, greater than 50% of time spent counseling, educating, and coordinating care regarding the above mentioned plan. ICD10 Worksheet Patient Problems: Problems Problem Status Diagnosed Dehydration Acute Anemia Acute Primary parotid gland malignancy Acute Upper GI bleed Acute
[2016-05-11 10:13] LABS: % IMMATURE GRANULYOCYTES 0.7 % (0.0-1.1); ABSOLUTE IMMATURE GRANULOCYTES 0.13 10^3/uL (0.00-0.10); ADD DIFF? NO; ADD MORPH? NO; ADD SCAN? NO; ATYPICAL LYMPHOCYTE FLAG 20 (0-99); FRAGMENT RBC FLAG 10 (0-99); HEMATOCRIT 43.3 % (40.0-51.0); HEMOGLOBIN 13.2 g/dL (13.7-17.5); LEFT SHIFT FLG 10 (0-99); LIPEMIA HEMOLYSIS FLAG 80 (0-99); MEAN CELL HEMOGLOBIN 30.1 pg (27.9-34.1); MEAN CELL HEMOGLOBIN CONCENTR. 30.5 g/dL (32.4-36.7); MEAN CELL VOLUME 98.6 fL (81.5-99.8); MEAN PLATELET VOLUME 10.4 fL (8.7-11.7); PLATELET CLUMPS FLAG 10 (0-99); PLATELET COUNT 358 10^3/uL (150-400); RED BLOOD CELL COUNT 4.39 10^6/uL (4.40-6.38); RED CELL DISTRIBUTION WIDTH 17.1 % (11.5-15.2)
[2016-05-11 10:33] LABS: ALANINE AMINOTRANSFERASE 43 IU/L (21-72); ALBUMIN 3.4 g/dL (3.5-5.0); ALKALINE PHOSPHATASE 135 IU/L (38-126); ANION GAP 10 mEq/L (8-16); ASPARTATE AMINOTRANSFERASE 25 IU/L (17-59); BILIRUBIN,TOTAL 0.7 mg/dL (0.1-1.4); CALCIUM 10.5 mg/dL (8.5-10.4); CARBON DIOXIDE 38 mEq/l (22-31); CHLORIDE 99 mEq/L (97-110); CREATININE 0.6 mg/dL (0.7-1.3); GLOMERULAR FILTRATION RATE > 60; GLUCOSE 109 mg/dL (70-100); POTASSIUM 4.3 mEq/L (3.5-5.2); SODIUM 147 mEq/L (134-144); TOTAL PROTEIN 7.1 g/dL (6.3-8.2)
[2016-05-11] MEDS: DULoxetine 60 MG CAP TUBE SCH (10:56)
[2016-05-11] MEDS: predniSONE 10 MG TAB TUBE SCH (10:56)
[2016-05-11] MEDS: ENOXAPARIN 40 MG/0.4 ML SYR SC SCH (10:58)
[2016-05-11] MEDS: SENNOSIDES 17.6 MG/10 ML UDL TUBE SCH ×2 (10:58→22:12)
[2016-05-11] MEDS: PETROLAT,WHT/MIN OIL/SOD CHL 3.5 GM OPHT.OINT EACHEYE PRN (10:59)
[2016-05-11] MEDS: TESTOSTERONE 1% 5 GM GEL PKT TD SCH (10:59)
[2016-05-11] MEDS: POTASSIUM CL 20 MEQ/15 ML UDCUP TUBE SCH ×2 (10:59→22:11)
[2016-05-11] MEDS: LANSOPRAZOLE SUSP 30MG/10ML UDSYR (Adult) TUBE SCH ×2 (11:00→22:12)
[2016-05-11] MEDS: PREGABALIN 75 MG CAP TUBE SCH ×2 (11:04→22:13)
[2016-05-11] MEDS: FLUCONAZOLE 40 MG/1 ML 35 ML BOTTLE TUBE SCH (11:08)
[2016-05-11] MEDS: ACETAMINOPHEN 650 MG/20.3 ML UDCUP TUBE PRN ×2 (12:54→22:12)
--- NOTE | 2016-05-11 13:11 | IR ---
Imaging Guided Peripherally Inserted Central Catheter History: Right facial cellulitis. Technique: Following informed consent, the right arm was prepped and draped in sterile fashion. All e lements of maximal sterile barrier technique including cap, mask, sterile gown, sterile gloves, large sterile sheet, hand hygiene, and 2% chlorhexidine for cutaneous antisepsis, followed. Ultrasound tra nsducer was placed in sterile sleeve and sterile coupling gel was used. Ultrasound evaluation of pote ntial access sites was performed. After successfully identifying a patent vessel of adequate size, 1% Xylocaine was used for local anesthetic. Ultrasound guidance was used to puncture the cephalic vein with a 21-gauge needle. 0.018 measuring wire was passed centrally under fluoroscopic control. A skin mauro with scalpel blade was followed by removing the access needle. A 4.5 Moroccan peel-away sheath was followed by a 4 Moroccan single-lumen central catheter , trimmed to 42 cm length. The tip of the c atheter was positioned centrally and the guidewire removed. AP fluoroscopic spot image was obtained i n inspiration. The catheter irrigated easily. The hub of the catheter was secured to the skin using a StatLock adhesive device, and a sterile dressing was applied. Fluoroscopy time in minutes: 0.5 . Estimated exposure in mGy: 1.9 . Findings: The tip of the central catheter terminates at the junction of the superior vena cava and th e right atrium. Pneumoperitoneum under the right hemidiaphragm appears smaller than chest radiograph of yesterday. Impression: 4 Moroccan single lumen peripherally inserted central catheter is ready to use. - - - - - - - - - - - - - - - - - - - - - - - - - - - - - - - - - - - - - - - - - (Cross-cutting measures: Current medications were listed in the medical record, including all known prescriptions, [id number] medications, herbal medications, and nutritional supplements. The pat ient does not smoke. )
[2016-05-11] MEDS: MIRTAZAPINE 30 MG TAB TUBE SCH (22:13)
[2016-05-11] MEDS: LEVOTHYROXINE 100 MCG TAB TUBE SCH (22:13)
[2016-05-11] MEDS: LORazepam 0.5 MG TAB TUBE SCH (22:13)
[2016-05-11] MEDS: BUTRANS 20 MCG/HR TD SCH (22:14)
[2016-05-12] MEDS: MEROPENEM 1 GM in NS 100 ML IV SCH ×3 (05:01→21:02)
--- NOTE | 2016-05-12 11:22 | SOAPPROG ---
SOAP Progress Note Assessment/Plan: Assessment: Plan: 05/12/16 11:25 Head and neck cancer: recurrent. Per Dr. Simms, no further surgery, XRT recommended. Consider palliative chemo. At this point, pt doesn't want to make any decisions regarding further consults from oncology, palliative care, or hospice until he can meet with his family, which will be tomorrow afternoon. He will need arrangements to be made on discharge for home health, as well as supplies for PEG tube, likely IV antibx, suction supplies. 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 Still not sure if he wants to pursue LP, as recommended by ID. Appreciate input. Unable to swallow: on PEG tube Hypertension: BP variable. Off fludcortisone now. 05/12/16 11:30 05/12/16 11:32 Subjective: Here today early as conference call with Dr. Simms arranged by Joce Chauhan. Pt's two daughters and son gerontology aide as well. Pt somewhat sleepy during call. No new changes overnight. Dr. Simms discussed options including surgery , XRT, possible palliative chemo. He is not recommending further surgery or XRT , though palliative chemo is possibility to for symptom control. He recommended palliative care consult, hospice consult for information, hem-onc consult for possibility of palliative chemo. Eventually, when he leaves the hospital, he will go to his daughter Ashley's home in [place]. Ashley will be coming up tomorrow, and Jany will fly in [facility]. He also offered the option of transferring pt to [facility], though that likely isn't needed right now. Objective: Vital Signs Temp Pulse Resp BP Pulse Ox 36.6 C 118 H 18 131/83 H 82 L 05/12/16 08:00 05/12/16 08:00 05/12/16 08:00 05/12/16 08:00 05/12/16 08:00 Laboratory Results 05/11/16 09:50 05/11/16 09:50 05/11/16 05/12/16 05/13/16 05:59 05:59 05:59 Intake Total 2404 0565 Output Total 1999 300 Balance 2404 475 -300 General: awake but drowsy. Did at time fall asleep during call with Dr. Simms Lungs: clear, course cough CV: RRR Extremities: no edema ICD10 Worksheet Patient Problems: Problems Problem Status Diagnosed Dehydration Acute Anemia Acute Primary parotid gland malignancy Acute Upper GI bleed Acute
[2016-05-12] MEDS: PREGABALIN 75 MG CAP TUBE SCH ×2 (11:23→20:40)
[2016-05-12] MEDS: SENNOSIDES 17.6 MG/10 ML UDL TUBE SCH ×2 (11:25→20:40)
[2016-05-12] MEDS: POTASSIUM CL 20 MEQ/15 ML UDCUP TUBE SCH ×2 (11:25→20:40)
[2016-05-12] MEDS: ENOXAPARIN 40 MG/0.4 ML SYR SC SCH (11:26)
[2016-05-12] MEDS: TESTOSTERONE 1% 5 GM GEL PKT TD SCH (11:26)
[2016-05-12] MEDS: DULoxetine 60 MG CAP TUBE SCH (11:27)
[2016-05-12] MEDS: predniSONE 10 MG TAB TUBE SCH (11:27)
[2016-05-12] MEDS: FLUCONAZOLE 40 MG/1 ML 35 ML BOTTLE TUBE SCH (11:34)
[2016-05-12] MEDS: LANSOPRAZOLE SUSP 30MG/10ML UDSYR (Adult) TUBE SCH ×2 (11:34→21:04)
[2016-05-12] MEDS: MIRTAZAPINE 30 MG TAB TUBE SCH (20:41)
[2016-05-12] MEDS: LORazepam 0.5 MG TAB TUBE SCH (20:41)
[2016-05-12] MEDS: LEVOTHYROXINE 100 MCG TAB TUBE SCH (20:41)
[2016-05-13] MEDS: MEROPENEM 1 GM in NS 100 ML IV SCH ×3 (06:44→21:04)
--- NOTE | 2016-05-13 09:28 | DX ---
AP chest x-ray 0853 hours. History: Productive cough. Increased oxygen requirements. Findings: Comparison to May 10, 2016. Heart size and pulmonary vasculature remain within normal limits. There is increased consolidation le ft lower lobe. The lungs are otherwise mildly hyper expanded. Small left effusion is suspected as wel l. PICC line is noted from right arm approach with tip near the sinocaval junction. Osseous structure s are unchanged. Free air under the right hemidiaphragm has resolved. Impression: 1. Development of left lower lobe consolidation with small left effusion suspicious for pneumonia.
[2016-05-13] MEDS: ACETAMINOPHEN 650 MG/20.3 ML UDCUP TUBE PRN (09:54)
[2016-05-13] MEDS: ENOXAPARIN 40 MG/0.4 ML SYR SC SCH (09:56)
[2016-05-13] MEDS: POLYETHYLENE GLYCOL 3350 17 GM PKT TUBE PRN (09:56)
[2016-05-13] MEDS: SENNOSIDES 17.6 MG/10 ML UDL TUBE SCH (09:56)
[2016-05-13] MEDS: PREGABALIN 75 MG CAP TUBE SCH ×2 (09:57→21:05)
[2016-05-13] MEDS: DULoxetine 60 MG CAP TUBE SCH (09:57)
[2016-05-13] MEDS: predniSONE 10 MG TAB TUBE SCH (09:57)
[2016-05-13] MEDS: POTASSIUM CL 20 MEQ/15 ML UDCUP TUBE SCH (09:57)
[2016-05-13] MEDS: TESTOSTERONE 1% 5 GM GEL PKT TD SCH (09:57)
[2016-05-13] MEDS: LANSOPRAZOLE SUSP 30MG/10ML UDSYR (Adult) TUBE SCH ×2 (09:57→21:04)
[2016-05-13] MEDS: FLUCONAZOLE 40 MG/1 ML 35 ML BOTTLE TUBE SCH (10:06)
--- NOTE | 2016-05-13 10:29 | PCMIDPN ---
Assessment/Plan: Assessment/Plan: 1. Mandibular/temporal bone osteomyelitis with right school speech language pathologist myositis, right sphenoid/ethmoid/maxillary sinusitis, leptomeningeal enhancement: -Ongoing purulent drainage noted. Cx with Pseudomonas. -Currently on Merem -Surgery opinion noted. -Blood cx from 05/03/16 ngtd -Pt still deciding on spinal tap. Daughters to come in later today. Discussed care with Dr. Irving today -Increasing O2 needs, more somnolent. -Will add levaquin. Not taking zofran. Will change diflucan to nystatin swabs for oral care. Given concomitant interactions. -Overall prognosis guarded. 2. LLL pneumonia: - CXr reviewed -possibly aspirating. TF on hold. -Will add Vancomycin. -O2 needs up to 12L now. Care coordinated with Dr. Irving and Rn. Meds merem 1g q8- 05/03/16---#10 Subjective: Afebrile. Increase in O2 needs this Am to 8L. Sleepy but does answer questions. Denies abd pain. Mild headache. Objective: Vital Signs Temp Pulse Resp BP Pulse Ox 36.6 C 82 20 122/63 H 90 L 05/13/16 08:00 05/13/16 08:00 05/13/16 08:00 05/13/16 08:00 05/13/16 08:00 Laboratory Results 05/11/16 09:50 05/11/16 09:50 05/12/16 05/13/16 05/14/16 05:59 05:59 05:59 Intake Total 2475 1450 Output Total 2000 800 Balance 475 650 ESR 66 MM/HR (0-20) H 05/07/16 04:39 C-Reactive Protein 64.7 mg/L (<10.0) H 05/07/16 04:39 - Physical Exam General Appearance: other (sleepy) EENT: other (right face with graft, swelling over right cheek, copious purulent material easily expressed. ) Respiratory: coarse breath sounds Cardiac/Chest: regular rate, rhythm Extremities: No swelling Abdomen: normal bowel sounds, non-tender, soft, other (peg tube), No distended - Time Spent With Patient Time Spent with Patient: greater than 35 minutes Time Spent with Patient: Greater than 35 minutes spent on this patients care, greater than 50% of time spent counseling, educating, and coordinating care regarding the above mentioned plan. ICD10 Worksheet Patient Problems: Problems Problem Status Diagnosed Dehydration Acute Anemia Acute Primary parotid gland malignancy Acute Upper GI bleed Acute
[2016-05-13] MEDS ORDERED: IPRATROPIUM/ALBUTEROL 3 ML DEYVIAL IH PRN (11:18)
--- NOTE | 2016-05-13 11:31 | SOAPPROG ---
SOAP Progress Note Assessment/Plan: Assessment: Plan: 05/12/16 11:25 Head and neck cancer: recurrent. Per Dr. Simms, no further surgery, XRT recommended. Consider palliative chemo. At this point, pt doesn't want to make any decisions regarding further consults from oncology, palliative care, or hospice until he can meet with his family, which will be tomorrow afternoon. He will need arrangements to be made on discharge for home health, as well as supplies for PEG tube, likely IV antibx, suction supplies. 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 Still not sure if he wants to pursue LP, as recommended by ID. Appreciate input. Unable to swallow: on PEG tube Hypertension: BP variable. Off fludcortisone now. 05/12/16 11:30 05/12/16 11:32 Subjective: Somnolent but arousable. Increasing 02 needs overnight, decreasing mental status. PCXR this morning shows LLL pneumonia, likely related to aspiration. Objective: Vital Signs Temp Pulse Resp BP Pulse Ox 36.6 C 82 20 122/63 H 90 L 05/13/16 08:00 05/13/16 08:00 05/13/16 08:00 05/13/16 08:00 05/13/16 08:00 Laboratory Results 05/11/16 09:50 05/11/16 09:50 05/12/16 05/13/16 05/14/16 05:59 05:59 05:59 Intake Total 4062 4079 Output Total 3006 778 Balance 475 479 ICD10 Worksheet Patient Problems: Problems Problem Status Diagnosed Dehydration Acute Anemia Acute Primary parotid gland malignancy Acute Upper GI bleed Acute
--- NOTE | 2016-05-13 12:01 | SOAPPROG ---
SOAP Progress Note Assessment/Plan: Assessment: Plan: 05/12/16 11:25 Head and neck cancer: recurrent. Per Dr. Simms, no further surgery, XRT recommended. Consider palliative chemo. At this point, pt doesn't want to make any decisions regarding further consults from oncology, palliative care, or hospice until he can meet with his family, which will be tomorrow afternoon. He will need arrangements to be made on discharge for home health, as well as supplies for PEG tube, likely IV antibx, suction supplies. 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 Still not sure if he wants to pursue LP, as recommended by ID. Appreciate input. Unable to swallow: on PEG tube Hypertension: BP variable. Off fludcortisone now. 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 Per discussion with Dr. Soto, wonder about debridement , but he would not likely tolerate this, and benefit likely minimal. Also discussed question of LP, and he would not likely tolerate this either. LLL pneumonia: likely aspiration. Increased oxygen need, increased somnolence. Antibiotic coverage broadened. Code status changed to DNR per discussion with daughters. Dispo: status has changed, and pt would like to go home today if possible. Family is requesting that antibx, tube feeds, suction remain in place at home. Case management has contacted [facility] and social group worker will be here soon to discuss hospice vs palliative care with family. Pt wouldn't qualify for hospice with antibx, tube feeds. Subjective: Somnolent this morning, but arousable. Increased 02 needs overnight and decreased mental status. PCXR with LLL pneumonia this morning. Levaquin and vanco added by ID. Appreciate Dr. Soto's input. Daughter Jany flew in last night. She and daughter Ashley are here this morning. Pt expressing desire to go home today. Not wanting to be in hospital any longer. Objective: Vital Signs Temp Pulse Resp BP Pulse Ox 36.6 C 82 20 122/63 H 90 L 05/13/16 08:00 05/13/16 08:00 05/13/16 08:00 05/13/16 08:00 05/13/16 08:00 Laboratory Results 05/11/16 09:50 05/11/16 09:50 05/12/16 05/13/16 05/14/16 05:59 05:59 05:59 Intake Total 6614 1476 Output Total 0514 357 Balance 475 650 General: sleepy but arousable ICD10 Worksheet Patient Problems: Problems Problem Status Diagnosed Dehydration Acute Anemia Acute Primary parotid gland malignancy Acute Upper GI bleed Acute
[2016-05-13] MEDS: VANCOMYCIN 750 MG in D5W 150 ML IV SCH ×2 (12:39→23:39)
[2016-05-13] MEDS: NYSTATIN SUSP 500000 UNIT/5 ML UDCUP PO SCH ×3 (14:39→21:04)
[2016-05-13] MEDS ORDERED: NS 1,000 ML IV SCH (18:30)
[2016-05-13] MEDS: LORazepam 0.5 MG TAB TUBE SCH (21:05)
[2016-05-13] MEDS: LEVOTHYROXINE 100 MCG TAB TUBE SCH (21:05)
[2016-05-13] MEDS: MIRTAZAPINE 30 MG TAB TUBE SCH (21:05)
[2016-05-14] MEDS: NYSTATIN SUSP 500000 UNIT/5 ML UDCUP PO SCH ×2 (05:49→10:41)
[2016-05-14] MEDS: MEROPENEM 1 GM in NS 100 ML IV SCH (05:49)
[2016-05-14 06:05] LABS: % IMMATURE GRANULYOCYTES 0.8 % (0.0-1.1); ABSOLUTE IMMATURE GRANULOCYTES 0.14 10^3/uL (0.00-0.10); ADD DIFF? NO; ADD MORPH? NO; ADD SCAN? YES; ATYPICAL LYMPHOCYTE FLAG 0 (0-99); FRAGMENT RBC FLAG 20 (0-99); HEMATOCRIT 34.4 % (40.0-51.0); HEMOGLOBIN 10.4 g/dL (13.7-17.5); LIPEMIA HEMOLYSIS FLAG 80 (0-99); MEAN CELL HEMOGLOBIN 29.4 pg (27.9-34.1); MEAN CELL HEMOGLOBIN CONCENTR. 30.2 g/dL (32.4-36.7); MEAN CELL VOLUME 97.2 fL (81.5-99.8); MEAN PLATELET VOLUME 10.1 fL (8.7-11.7); PLATELET CLUMPS FLAG 0 (0-99); PLATELET COUNT 235 10^3/uL (150-400); RED BLOOD CELL COUNT 3.54 10^6/uL (4.40-6.38); RED CELL DISTRIBUTION WIDTH 17.4 % (11.5-15.2)
[2016-05-14 06:18] LABS: LEFT SHIFT FLG 240 (0-99)
[2016-05-14 06:42] LABS: ALANINE AMINOTRANSFERASE 27 IU/L (21-72); ALBUMIN 2.4 g/dL (3.5-5.0); ALKALINE PHOSPHATASE 104 IU/L (38-126); ANION GAP 5 mEq/L (8-16); ASPARTATE AMINOTRANSFERASE 15 IU/L (17-59); BILIRUBIN,TOTAL 0.6 mg/dL (0.1-1.4); CALCIUM 10.2 mg/dL (8.5-10.4); CARBON DIOXIDE 36 mEq/l (22-31); CHLORIDE 104 mEq/L (97-110); CREATININE 0.7 mg/dL (0.7-1.3); GLOMERULAR FILTRATION RATE > 60; GLUCOSE 70 mg/dL (70-100); POTASSIUM 4.5 mEq/L (3.5-5.2); SODIUM 145 mEq/L (134-144); TOTAL PROTEIN 5.5 g/dL (6.3-8.2)
[2016-05-14 07:27] LABS: SCAN POSITIVE
[2016-05-14 07:30] LABS: PLATELET ESTIMATE ADEQUATE (ADEQ)
[2016-05-14 07:58] VITALS: BP 91/56; PULSE 91; RESP 15; TEMP 100.1; O2SAT 91
--- NOTE | 2016-05-14 09:35 | SOAPPROG ---
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 Unknown if disease is truly contained weight loss--significant difficulty due to tongue impairment and swallowing--- will make NPO tonight, speech assessment in the am dehydration--IVF's constipation--LOC RA--continue meds 05/04/16 09:05 Right sided facial infection, complicated history with multiple surgeries, skin grafts x3, and radiation--Lots of drainage over night. WBC slightly better Speech, chewing, swallowing, and drinking deficits--ST working with patient now Neurogenic pain--significantly increased after not being able to take/swallow Lyrica, IV morphine added this am with some improvement dehydration--improved--change fluids given elevated sodium level constipation--+ BM today RA--stable anemia with iron deficiency, will replace with IV iron given feeding difficulties 05/04/16 13:[address] jarod. Patient aspirates thin and nectar thick liquids and can't form a bolus. D/w patient, he would like to proceed with a PEG tube. I have discussed this with Dr Fuller who will see the patient today for hopeful placement today. Will hold on oral meds and hopefully be able to use the PEG for meds in the near future 05/06/16 10:42 HTN--BP improved, will reduce fludrocortisone from 0.2 towards 0.1 mg daily, taper further if BP remains to be elevated low k+--start tube replacement dehydration/malnourishment--PEG refeeding, appreciate dietary guidance complicated skin infection, concern from osteomyelitis--facial MRI pending, appreciate ID input 05/07/16 11:12 right facial infection with probable osteomyelitis. Suspect progression of squamous cell CA as well. MRI still pending. Radiologists are not willing to proceed with MRI until lid gold bar is completely identified and imaging protocol clarified. weight loss--on tube feed dysphagia/dysphonia--worse than 2 weeks ago considerably, suspect more nerve injury is occurring RA--started prednisone at 10 mg daily as stress dose--notes suggest his baseline prednisone dose was 2-4 mg per day. Methotrexate currently held. Last Humira dose unknown--no clear evidence of RA activity HTN--stop fludrocortisone Tube feeding--will look to dietary to increase tube fluids as IV fluid will be discontinued this am >1 hour spent with patient and planning today 05/07/16 11:16 05/09/16 08:36 Right facial infection with pseudomonas, on appropriate antibiotic coverage metastatic right facial squamous cell CA--MRI pending. Will hope to shore up details on Right eye gold bar prosthesis to get this done. MRI results will help patient guide decisions on how to proceed profound dysphagia--Tube feeds with PEG working well as malnourishment has resulted in profound weight loss Patient to likely move in with [facility] in [facility] once MRI completed , decisions made, and house ready for him 05/10/16 09:32 right facial infection--MRI read and comparison pending. 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 on Meropenem. PICC line today. D/W with Dr Pearl today. She has more concerns regarding the severity of the infection. Will attempt to connect Mr Rawls with [employer]. unable to eat/drink--continued nutrition through PEG labs pending 05/14/16 09:34 end stage progression of squamous cell CA with secondary infections. Plan to d/ c home to [facility]'s house today with hospice. Will d/c antibiotics. No further tube feeds. Short survival expected. Low BP yesterday responded well to fluid bolus. Discussed in detail with [place] this morning Subjective: No verbal response this morning. Sveta Coleman here. Moderate urinary frequency over night. Objective: Vital Signs Temp Pulse Resp BP Pulse Ox 37.8 C 91 15 91/56 L 91 L 05/14/16 07:55 05/14/16 07:55 05/14/16 07:55 05/14/16 07:55 05/14/16 07:55 Laboratory Results 05/14/16 05:50 05/14/16 05:50 05/13/16 05/14/16 05/15/16 05:59 05:59 05:59 Intake Total 1450 2742 Output Total 800 2175 Balance 650 567 Gen: resting comfortably, no respiratory distress. Strong regular pulses. ICD10 Worksheet Patient Problems: Problems Problem Status Diagnosed Dehydration Acute Anemia Acute Primary parotid gland malignancy Acute Upper GI bleed Acute
--- NOTE | 2016-05-14 09:41 | PDIAF ---
- Diagnosis Diagnosis: metastatic squamous cell CA, osteomyelitis, pneumonia Code Status: Do Not Resuscitate - Medication Management Discharge Medications: Medications to Continue on Transfer Butrans 15mcg/Hr Patch 1 patch TD Q7D 12/21/15 [Last Taken 04/26/16] LORazepam [Ativan (*)] 0.5 - 1 mg PO HS 12/21/15 [Last Taken Unknown] Levothyroxine [Synthroid 100 mcg (*)] 100 mcg PO HS 12/21/15 [Last Taken Unknown ] Pregabalin [Lyrica 75mg (*)] 150 mg PO DAILY 12/21/15 [Last Taken Unknown] Mineral Oil/Petrolatum,White [Refresh P.m. Ointment] 1 radha EACHEYE TID PRN 05/05 [Last Taken Unknown] Acetaminophen [Tylenol 650/20.3ML Oral Liq (*)] 650 mg TUBE Q4 PRN #0 udcup 01/20 [Last Taken Unknown] Acetaminophen [Tylenol Rectal] 650 mg DE Q4HRS PRN #0 supp 05/14/16 [Last Taken Unknown] DULoxetine [Cymbalta 60 MG (*)] 60 mg TUBE DAILY #0 cap 05/14/16 [Last Taken Unknown] Lansoprazole [PREVACID 30mg/10ml susp (Adult) (*)] 30 mg TUBE BID #0 udsyr 05/14 [Last Taken Unknown] Mirtazapine [Remeron] 30 mg TUBE HS #0 tab 05/14/16 [Last Taken Unknown] Ondansetron Odt [Zofran Odt 4 mg (*)] 4 mg PO Q4HRS PRN #0 tab 05/14/16 [Last Taken Unknown] Petrolat,Wht/Min Oil/Sod Chl [Refresh P.m. Ointment] 1 radha EACHEYE TID PRN #0 opht.oint 05/14/16 [Last Taken Unknown] Pregabalin [Lyrica 75mg (*)] 150 mg TUBE HS #0 cap 05/14/16 [Last Taken Unknown] predniSONE 10 mg TUBE DAILY #0 tab 05/14/16 [Last Taken Unknown] Hotel Assistant General Manager Antibiotics: na Discharge Medications: Refer to the Discharge Home Medication list for PRN reason. - Orders Home Care Face to Face: hospice care Oxygen: yes high flow 10-15 lpm Diet Recommendation: other Diet Texture: Water Protocol, Ice Chips, Non Oral Meds Tube feeding: meds only Beckwith: Not applicable - Follow Up Care Current Providers and Referrals: Derrick Abdullahi MD [Primary Care Provider] -
--- NOTE | 2016-05-14 10:09 | GDS ---
[f rep st] DISCHARGE SUMMARY DISPOSITION: Transfer home with hospice. REASON FOR ADMISSION: Facial infection, dehydration. DISCHARGE DIAGNOSIS: Osteomyelitis of the right facial region involving the ramus of the right gordy ble as well as temporal bone and some suspicion for possible sinus and potential deep facial infectio n with progression of squamous cell carcinoma. HOSPITAL COURSE: The patient was found to have a purulent draining wound from his right lateral face at site of prior squamous cell excision. He was initially treated with meropenem. Culture identifi ed Pseudomonas which was responsive to meropenem. He had an infectious disease consultation. Antibi otics were maintained. He had somewhat of a progression of his infection. MRI was ultimately obtain ed which showed complex picture mixing infection and inflammation. We were able to contact Dr. Norma joel regarding the patient's situation, as the surgeon had previously worked with the patient in an at tempt to control and remove his squamous cell carcinoma. After discussion with Dr. Simms, it was made clear that this current situation reflected a mixture of opportunistic infection involved with s uperimposed spreading of his squamous cell carcinoma. His family has been involved in his care. Rena Carmichael and Ashley were updated and informed, and ultimately the patient and family have chos en to go home with hospice per his wishes. He will have antibiotics discontinue, tube feeds will be discontinued. He will be transferred home by non-urgent transport today around 1 o'clock, and a care package for medication therapy to reduce discomfort will be initiated today. It is not expected rama t he will survive very long. This was discussed in detail with daughter Jany on morning of discha naomy. /[id number]/MODL
[2016-05-14] MEDS: predniSONE 10 MG TAB TUBE SCH (10:39)
[2016-05-14] MEDS: TESTOSTERONE 1% 5 GM GEL PKT TD SCH (10:39)
[2016-05-14] MEDS: DULoxetine 60 MG CAP TUBE SCH (10:40)
[2016-05-14] MEDS: LANSOPRAZOLE SUSP 30MG/10ML UDSYR (Adult) TUBE SCH (10:41)
[2016-05-14] MEDS: PREGABALIN 75 MG CAP TUBE SCH (10:57)
== END 2016-05-14 13:15 | disposition hospice, home (50) | DRG 919 ==
LOC: OBSVTOIN 19:06 → F3N 20:37
PROVIDERS: ADMIT Internal Medicine; ATTEND Internal Medicine
PROC: 0DB68ZX Excision of Stomach, Via Natural or Artificial Opening Endoscopic, Diagnostic (ICD-10-PCS; principal; 2016-05-04 16:00)
PROC: 0DH68UZ Insertion of Feeding Device into Stomach, Via Natural or Artificial Opening Endoscopic (ICD-10-PCS; principal; 2016-05-04 16:00)
PROC: 02HV33Z Insertion of Infusion Device into Superior Vena Cava, Percutaneous Approach (ICD-10-PCS; 2016-05-11)
DX: T86.822 Skin graft (allograft) (autograft) infection (principal); C44.390 Other specified malignant neoplasm of skin of unspecified parts of face; M86.18 Other acute osteomyelitis, other site; M27.2 Inflammatory conditions of jaws; E86.0 Dehydration; B96.5 Pseudomonas (aeruginosa) (mallei) (pseudomallei) as the cause of diseases classified elsewhere; J18.9 Pneumonia, unspecified organism; R47.1 Dysarthria and anarthria; R13.12 Dysphagia, oropharyngeal phase; R20.0 Anesthesia of skin; R63.0 Anorexia; K59.00 Constipation, unspecified; G50.0 Trigeminal neuralgia; D72.829 Elevated white blood cell count, unspecified; I10 Essential (primary) hypertension; K25.9 Gastric ulcer, unspecified as acute or chronic, without hemorrhage or perforation; E29.1 Testicular hypofunction; E03.9 Hypothyroidism, unspecified; M06.9 Rheumatoid arthritis, unspecified; N40.0 Benign prostatic hyperplasia without lower urinary tract symptoms; I95.89 Other hypotension; F32.9 Major depressive disorder, single episode, unspecified; F41.8 Other specified anxiety disorders; G47.00 Insomnia, unspecified; Z92.3 Personal history of irradiation; Z66 Do not resuscitate; Z86.711 Personal history of pulmonary embolism; Z97.8 Presence of other specified devices
CPT/HCPCS: 92507-GN; 92523-GN; 92526-GN; 92610-GN; 92611-GN; 97001-GP; 97003-GO; 97116-GP; 97530-GP; A9585; C1751; G8978-GP-CJ; G8979-GP-CI; G8987-GO-CI; G8988-GO-CI; G8989-GO-CI; G8996-GN-CM; G8997-GN-CL; G8999-GN-CM; G9158-GN-CM; G9174-GN-CK; G9175-GN-CI; G9176-GN-CI; G9186-GN-CM; J1650; J1956; J2185; J2704; J2916; J3370; Q9967